=== PATIENT | male | born 1955 | race African-American/Black ===

== ENCOUNTER 2016-08-28 08:37 | Emergency (ER) | payer OTHER ==
[~2016-08-28] VITALS: Ht 177.8 cm; Wt 99.8 kg
[~2016-08-28 08:37] MED LIST: ACETAMINOPHEN-1 EAC1; ACETAMINOPHEN325 M1 PO; ASA5UEC PO; ASPIR 8181 MG PO; ASPIRIN325 PO; AZITHROMYCIN 2250 MG PO; BACTRIM DS TAB1 EACH PO; CARVEDILOL6.25 MG PO; COLCHICINE0.6 MG PO; DARVOCET-N 1001 EACH PO; DOXYCYCLINE 10100 MG PO; GLIPIZIDE 10 MG10 MG PO; GLIPIZIDE ER10 MG PO; GLUCOPHAGE XR500 MG PO; GLUCOPHAGE1000 MG PO; GLUCOPHAGE500 MG PO; GLUCOTROL10 MG PO; HYDROCODONE-AP1 EAC6 PO; IBUPROFEN 600600 M1 PO; INDOMETHACIN 2525 MG PO; KEFLEX500 MG PO; LASIX 20 MG TAB20 MG PO; LASIX 40 MG TAB40 M1 GT; LASIX 40 MG TAB40 MG PO; LEVEMIR SUBQ; LIPITOR40 MG PO; LISINOPRIL10 MG PO; LISINOPRIL20 MG PO; LISINOPRIL40 MG PO; LORTAB 7.5/5001 TA1 PO; METFORMIN HCL500 MG PO; NAPROSYN500 MG PO; NICOTINE1 EAC2; NORCO 5-325 TA1 EACH PO; PERCOCET 5-3251 EACH PO; PERCOCET PO; PHENERGAN-CODE120 ML PO; PLAVIX 75 MG TA75 M1 PO; PROPOXY-N/APAP1 TAB PO; PROVENTIL HFA6.7 G1 INH; SIMVASTATIN20 MG PO; TESSALON PERLE100 MG PO; TOPROL XL25 MG PO; TUSSIONEX PENN473 ML PO; UNICOMPLEX M TA1 TA1 PO; VENTOLIN HFA 1818 GM INH; ZOCOR40 MG PO; ZPAK PO
[2016-08-28] MEDS ORDERED: PROAIR HFA8.5 GM INH (09:12)
[2016-08-28] MEDS ORDERED: TESSALON PERLE100 MG PO (09:12)
[2016-08-28] MEDS ORDERED: PREDNISONE 20 M20 MG PO (09:12)
== END 2016-08-28 09:37 | disposition home or self-care (01) ==
LOC: ER 08:37
DX: J06.9 Acute upper respiratory infection, unspecified (principal); I11.0 Hypertensive heart disease with heart failure; I50.9 Heart failure, unspecified; E11.9 Type 2 diabetes mellitus without complications; Z95.5 Presence of coronary angioplasty implant and graft; Z86.79 Personal history of other diseases of the circulatory system; Z86.73 Personal history of transient ischemic attack (TIA), and cerebral infarction without residual deficits; Z87.442 Personal history of urinary calculi; F17.210 Nicotine dependence, cigarettes, uncomplicated; F10.99 Alcohol use, unspecified with unspecified alcohol-induced disorder

== ENCOUNTER 2017-06-04 12:31 | Emergency (ER) | payer OTHER ==
[~2017-06-04] VITALS: Ht 177.8 cm; Wt 102.1 kg
[~2017-06-04 12:31] MED LIST changes: +PREDNISONE 20 M20 MG PO; +PROAIR HFA8.5 GM INH
[2017-06-04 12:40] VITALS: BP 164/100
[2017-06-04] MEDS ORDERED: ZPAK PO ×2 (13:34→13:39)
[2017-06-04] MEDS ORDERED: PROMETHAZINE/C118 ML PO ×2 (13:34→13:39)
[2017-06-04] MEDS ORDERED: PREDNISONE 20 M20 MG PO (13:39)
[2018-01-09] MEDS ORDERED: VENTOLIN HFA 1818 GM INH (14:07)
[2018-01-09] MEDS ORDERED: ROBITUSSIN COU237 M2 PO (14:07)
[2018-01-09] MEDS ORDERED: TESSALON PERLE100 MG PO (14:07)
== END 2017-06-04 13:42 | disposition home or self-care (01) ==
LOC: ER 12:31
DX: R05 Cough (principal); I11.0 Hypertensive heart disease with heart failure; I50.9 Heart failure, unspecified; Z87.442 Personal history of urinary calculi; Z71.6 Tobacco abuse counseling; Z72.0 Tobacco use

== ENCOUNTER 2017-08-25 18:41 | Emergency (ER) | payer OTHER ==
[~2017-08-25] VITALS: Ht 177.8 cm; Wt 99.8 kg
[~2017-08-25 18:41] MED LIST changes: +PROMETHAZINE/C118 ML PO
[2017-08-25] MEDS ORDERED: PREDNISONE 20 M20 MG PO (20:11)
[2017-08-25] MEDS ORDERED: PROMETHAZINE/C118 ML PO (20:11)
== END 2017-08-25 20:20 | disposition home or self-care (01) ==
LOC: ER 18:41
DX: J40 Bronchitis, not specified as acute or chronic (principal); I11.0 Hypertensive heart disease with heart failure; I50.9 Heart failure, unspecified; E11.9 Type 2 diabetes mellitus without complications; I25.10 Atherosclerotic heart disease of native coronary artery without angina pectoris; F17.210 Nicotine dependence, cigarettes, uncomplicated

== ENCOUNTER 2018-03-18 11:03 | Emergency (ER) | payer OTHER ==
[~2018-03-18] VITALS: Ht 177.8 cm; Wt 99.8 kg
--- NOTE | ~2018-03-18 | EKG ---
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: [facility] : 1955 Requested By: Steve Barksdale Order Number: [id number] MD: Scott Nicholson Measurements Intervals [place] Rate: 76 P: 50 MN: 152 QRS: 20 QRSD: 112 T: 179 QT: 431 QTc: 485 Interpretive Statements Sinus rhythm Abnrm T, consider ischemia, anterolateral lds Baseline wander in lead(s) V2 Compared to ECG 10/31/2015 07:40:22 T wave abnormality is more pronounced Electronically Signed On 03-19-2018 7:32:[address] LIGHT REPAIRER HELPER by Scott Nicholson [email or web address] <ELECTRONICALLY SIGNED> By: Scott Nicholson MD, [facility] 03/19/18 0732 1206 1206 Scott Nicholson MD, [facility] /EPI
[~2018-03-18 11:03] MED LIST changes: +ROBITUSSIN COU237 M2 PO
[2018-03-18 12:03] LABS: HEMATOCRIT 46.2 % (42.0-52.0); HEMOGLOBIN 15.4 gm/dL (14.0-18.0); MCH 30.6 pg (26.0-34.0); MCHC 33.3 g/dL (28.0-37.0); MCV 91.8 fL (80.0-100.0); RBC 5.03 mil/uL (4.50-6.00); RDW 12.5 % (10.5-14.5); WBC 8.9 thou/uL (4.0-11.0)
[2018-03-18 12:04] LABS: URINE BILIRUBIN NEGATIVE (Negative); URINE BLOOD NEGATIVE (Negative); URINE CLARITY CLEAR; URINE COLOR YELLOW; URINE GLUCOSE-RANDOM* 3+ (Negative); URINE KETONES NEGATIVE (Negative); URINE LEUKOCYTES-REFLEX NEGATIVE (Negative); URINE NITRITE-REFLEX NEGATIVE (Negative); URINE PROTEIN (DIPSTICK) NEGATIVE (Negative); URINE SPECIFIC GRAVITY >= 1.030 (1.005-1.035); URINE UROBILINOGEN 0.2 E.U./dl (0.2-1.0)
[2018-03-18 12:07] LABS: ANION GAP 8 mmol/L (7-16); BUN 13 mg/dL (7-18); CALCIUM 9.8 mg/dL (8.5-10.1); CHLORIDE 101 mmol/L (98-107); CO2 30 mmol/L (21-32); CREATININE 1.3 mg/dL (0.7-1.3); GLUCOSE 275 mg/dL (74-106); POTASSIUM 3.9 mmol/L (3.5-5.1); SODIUM 139 mmol/L (136-145)
[2018-03-18 12:16] LABS: TROPONIN-I <0.06 ng/mL (<0.06)
[2018-03-18 15:47] VITALS: BP 140/86
== END 2018-03-18 15:57 | disposition left against medical advice (07) ==
LOC: ER 11:03
PROVIDERS: Emergency Medicine
DX: R53.1 Weakness (principal); E11.9 Type 2 diabetes mellitus without complications; I11.0 Hypertensive heart disease with heart failure; I50.9 Heart failure, unspecified; I25.10 Atherosclerotic heart disease of native coronary artery without angina pectoris; F17.210 Nicotine dependence, cigarettes, uncomplicated; Z86.73 Personal history of transient ischemic attack (TIA), and cerebral infarction without residual deficits; Z95.5 Presence of coronary angioplasty implant and graft; Z87.442 Personal history of urinary calculi

== ENCOUNTER → 2018-04-23 | Outpatient (CLI) | payer OTHER | LOC: MRI 13:33 | DX: I63.9 Cerebral infarction, unspecified (principal); R29.898 Other symptoms and signs involving the musculoskeletal system; Z72.0 Tobacco use ==

== ENCOUNTER 2018-08-05 10:02 | Emergency (ER) | payer OTHER ==
[~2018-08-05] VITALS: Ht 175.3 cm; Wt 99.8 kg
[2018-08-05 10:56] LABS: ABSOLUTE NEUTROPHILS 5.1 thou/uL (1.4-8.2); BASOPHILS 0.7 % (0.0-2.0); EOSINOPHILS 1.1 % (0.0-3.0); HEMOGLOBIN 14.1 gm/dL (14.0-18.0); LYMPHOCYTES 26.8 % (24.0-44.0); MCHC 33.5 g/dL (28.0-37.0); MCV 92.7 fL (80.0-100.0); MONOCYTES 5.1 % (1.0-8.0); PLATELET COUNT 281 thou/uL (150-400); POLYS 66.3 % (36.0-66.0); RBC 4.53 mil/uL (4.50-6.00); RDW 12.2 % (10.5-14.5); WBC 7.7 thou/uL (4.0-11.0)
[2018-08-05 10:59] LABS: CALCIUM 9.2 mg/dL (8.5-10.1); CREATININE 1.2 mg/dL (0.7-1.3); POTASSIUM 3.9 mmol/L (3.5-5.1)
[2018-08-05 11:08] LABS: ALBUMIN 3.3 g/dL (3.4-5.0); TOTAL BILIRUBIN 0.7 mg/dL (<0.1-1.0); TROPONIN-I 0.24 ng/mL (<0.06)
[2018-08-05] MEDS ORDERED: TOPROL XL25 MG PO (12:06)
[2018-08-05] MEDS ORDERED: METFORMIN HCL500 MG PO (12:07)
[2018-08-05] MEDS ORDERED: GUAIFEN-CODEINE10 ML PO (13:30)
[2018-08-05 13:38] VITALS: BP 151/92
--- NOTE | 2018-08-06 08:46 | EKG ---
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: [facility] : 1955 Requested By: Serina Stokes Order Number: [id number] MD: Errol Mann Measurements Intervals [place] Rate: 93 P: 44 MN: 150 QRS: 24 QRSD: 113 T: 187 QT: 370 QTc: 461 Interpretive Statements Sinus rhythm Probable left atrial enlargement Borderline intraventricular conduction delay Abnormal T, similar to prior Electronically Signed On 08-06-2018 8:46:36 CDT by Errol Mann [email or web address] ��������������������������������������������� <ELECTRONICALLY SIGNED> ���������������������������������������� By: Errol Mann MD ��������������������������������������������� 08/06/18 0846 1012 Errol Mann MD /DONNA
== END 2018-08-05 13:52 | disposition home or self-care (01) ==
LOC: ER 10:02
PROVIDERS: Emergency Medicine
DX: S29.012A Strain of muscle and tendon of back wall of thorax, initial encounter (principal); J06.9 Acute upper respiratory infection, unspecified; R79.89 Other specified abnormal findings of blood chemistry; E11.9 Type 2 diabetes mellitus without complications; I11.0 Hypertensive heart disease with heart failure; I50.9 Heart failure, unspecified; I25.10 Atherosclerotic heart disease of native coronary artery without angina pectoris; F17.210 Nicotine dependence, cigarettes, uncomplicated; Z86.73 Personal history of transient ischemic attack (TIA), and cerebral infarction without residual deficits; Z79.899 Other long term (current) drug therapy; Z87.442 Personal history of urinary calculi; V89.2XXA Person injured in unspecified motor-vehicle accident, traffic, initial encounter; Y93.I9 Activity, other involving external motion; Y92.410 Unspecified street and highway as the place of occurrence of the external cause; Y99.8 Other external cause status

== ENCOUNTER 2018-08-06 15:15 | Inpatient (IN) | payer OTHER ==
[~2018-08-06] VITALS: Ht 175.3 cm; Wt 101.5 kg
[2018-08-06] VITALS (18 sets, daily range): BP systolic 145–170; BP diastolic 87–108
[~2018-08-06 15:15] MED LIST changes: +GUAIFEN-CODEINE10 ML PO
[2018-08-06 16:03] LABS: ABSOLUTE NEUTROPHILS 7.2 thou/uL (1.4-8.2); BASOPHILS 0.8 % (0.0-2.0); HEMATOCRIT 41.4 % (42.0-52.0); HEMOGLOBIN 13.8 gm/dL (14.0-18.0); LYMPHOCYTES 18.6 % (24.0-44.0); MCH 30.8 pg (26.0-34.0); MCHC 33.2 g/dL (28.0-37.0); MCV 92.7 fL (80.0-100.0); MONOCYTES 4.9 % (1.0-8.0); PLATELET COUNT 284 thou/uL (150-400); POLYS 74.7 % (36.0-66.0); RBC 4.47 mil/uL (4.50-6.00); RDW 12.2 % (10.5-14.5); WBC 9.6 thou/uL (4.0-11.0)
[2018-08-06 16:09] LABS: CREATININE 1.2 mg/dL (0.7-1.3); POTASSIUM 3.4 mmol/L (3.5-5.1)
[2018-08-06 16:18] LABS: ALBUMIN 3.3 g/dL (3.4-5.0); TOTAL BILIRUBIN 0.6 mg/dL (<0.1-1.0); TOTAL PROTEIN 6.7 g/dL (6.4-8.2); TROPONIN-I 0.23 ng/mL (<0.06)
[2018-08-06 16:32] LABS: PROTIME 10.5 Seconds (9.3-11.4)
--- NOTE | 2018-08-06 18:10 | NUR ---
PT ARRIVED TO ICU AT 1805 FROM CAREER DEVELOPMENT ENGINEER. PT A&OX4. PT 97% ON ROOM AIR. HR 89, R-21, BP 144/88. PT ARRIVED LAYING FLAT, R GROIN SHEATH IN PLACE. PT STATES NO PAIN AT THIS TIME. ADMIT TELE STRIP PRINTED AND PLACED ON CHART.
--- NOTE | 2018-08-06 21:17 | NUR ---
ASSUMED CARE OF PT AT 1900. PT ALERT AND ORIENTED X4. SR ON THE MONITOR. BP ELEVATED. DIASTOLIC 90-100s. RIGHT GROIN SHEATH REMOVED AT 2029 PER ORDER. PRESSURE HELD TIL 2049. SCANT AMOUNT OF BLOOD OBSERVED. PT TOLERATED PROCEDURE WELL. PT HAS BEEN GRUNTING. O2 SAT WNL. HE DENIES ANY SOA. PT PLACED ON 2L NC FOR COMFORT. PT ABLE TO VOID PER URINAL. EDUCATION PROVIDED ON SYMPTOMS TO REPORT POST SHEATH REMOVAL. WILL CONTINUE TO MONITOR.
[2018-08-07] VITALS (17 sets, daily range): BP systolic 129–167; BP diastolic 78–99
[2018-08-07 04:28] LABS: CHOLESTEROL 160 mg/dL (<200); HDL CHOLESTEROL 33 mg/dL (>40); LDL CHOLESTEROL 113 mg/dL (<100); TC:HDL 4.8 Ratio (Not establshd); TRIGLYCERIDE 74 mg/dL (<150); VLDL 15 mg/dL (<40)
[2018-08-07 04:40] LABS: SERUM ASSESSMENT Clear
[2018-08-07 04:42] LABS: ANION GAP 10 mmol/L (7-16); BUN 14 mg/dL (7-18); CALCIUM 8.6 mg/dL (8.5-10.1); CHLORIDE 107 mmol/L (98-107); CO2 24 mmol/L (21-32); CREATININE 0.9 mg/dL (0.7-1.3); GLUCOSE 182 mg/dL (74-106); MAGNESIUM 1.8 mg/dL (1.8-2.4); POTASSIUM 3.7 mmol/L (3.5-5.1); SODIUM 141 mmol/L (136-145)
[2018-08-07 04:44] LABS: ABSOLUTE NEUTROPHILS 6.8 thou/uL (1.4-8.2); BASOPHILS 0.6 % (0.0-2.0); EOSINOPHILS 1.1 % (0.0-3.0); HEMATOCRIT 40.9 % (42.0-52.0); HEMOGLOBIN 13.6 gm/dL (14.0-18.0); LYMPHOCYTES 13.3 % (24.0-44.0); MCH 30.6 pg (26.0-34.0); MCHC 33.2 g/dL (28.0-37.0); MCV 92.3 fL (80.0-100.0); MONOCYTES 6.7 % (1.0-8.0); PLATELET COUNT 277 thou/uL (150-400); POLYS 78.3 % (36.0-66.0); RBC 4.43 mil/uL (4.50-6.00); RDW 12.5 % (10.5-14.5); WBC 8.6 thou/uL (4.0-11.0)
--- NOTE | 2018-08-07 08:24 | EKG ---
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[place] : 1955 Requested By: Mendy Isaac Order Number: [id number] MD: Errol Mann Measurements Intervals [place] Rate: 104 P: 40 [place]: 148 QRS: 23 QRSD: 111 T: 212 QT: 359 QTc: 473 Interpretive Statements Sinus tachycardia Ventricular premature complex Probable left atrial enlargement Repol abnrm laterally similar to prior Electronically Signed On 08-07-2018 8:24:03 CDT by Errol Mann [email or web address] ��������������������������������������������� <ELECTRONICALLY SIGNED> ���������������������������������������� By: Errol Mann MD ��������������������������������������������� 08/07/18 0824 1530 1530 Errol Mann MD /DON[facility]
--- NOTE | 2018-08-07 08:25 | EKG ---
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: [place] : 1955 Requested By: Mendy Isaac Order Number: [id number] MD: Errol Mann Measurements Intervals [place] Rate: 100 P: 37 [place]: 145 QRS: 21 QRSD: 113 T: 213 QT: 358 QTc: 462 Interpretive Statements Sinus tachycardia Probable left atrial enlargement unchanged from prior ekg Electronically Signed On 08-07-2018 8:25:00 CDT by Errol Mann [email or web address] ��������������������������������������������� <ELECTRONICALLY SIGNED> ���������������������������������������� By: Errol Mann MD ��������������������������������������������� 08/07/18 0825 1539 1539 MD JAIME Aguero
--- NOTE | 2018-08-07 08:26 | EKG ---
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 Electronically Signed On 08-07-2018 8:26:04 CDT by Errol Mann [email or web address] ��������������������������������������������� <ELECTRONICALLY SIGNED> ���������������������������������������� By: Errol Mann MD ��������������������������������������������� 08/07/18 0826 1603 1603 Errol Mann MD /DONNA
--- NOTE | 2018-08-07 08:30 | EKG ---
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: Elyse AMIN : 1955 Requested By: Jose Naik Order Number: [id number] MD: Errol Mann Measurements Intervals [place] Rate: 87 P: 46 [place]: 147 QRS: 30 QRSD: 109 T: 221 QT: 369 QTc: 444 Interpretive Statements Sinus rhythm Probable left atrial enlargement ST elevation, unchanged from prior Electronically Signed On 08-07-2018 8:30:32 CDT by Errol Mann [email or web address] ��������������������������������������������� <ELECTRONICALLY SIGNED> ���������������������������������������� By: Errol Mann MD ��������������������������������������������� 08/07/18 0830 1857 57 MD JAIME Aguero
--- NOTE | 2018-08-07 08:39 | EKG ---
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 : 1955 Requested By: Jose Naik Order Number: [id number] MD: Errol Mann Measurements Intervals [place] Rate: 85 P: 39 LA: 149 QRS: 9 QRSD: 107 T: 191 QT: 376 QTc: 447 Interpretive Statements Sinus rhythm Probable left atrial enlargement ST changes unchanged, likely early repol Electronically Signed On 08-07-2018 8:39:16 CDT by Errol Mann [email or web address] ��������������������������������������������� <ELECTRONICALLY SIGNED> ���������������������������������������� By: Errol Mann MD ��������������������������������������������� 08/07/18 0839 0747 0747 Errol Mann MD /DONNA
--- NOTE | 2018-08-07 09:26 | CATHLAB ---
[address] [address] [place] [address] INVASIVE PROCEDURE REPORT Name: ARACELI LARSEN Room #: 236-P ADM IN M.R.#: [id number] ������������� Admission: 08/06/18 ������������� Attend Phys: Jose Naik MD Discharge: ��� ������������� ��� Date of : 57 Date of Service: 08/07/18 0926 �� Report #: [id number] �������� ��������������������������������������������[id number] THIS REPORT FOR: //name// APPROVED REPORT Study performed: 08/06/2018 16:26:18 Patient Details Patient Status: ED Room #: The patient is a 62 year-old male Event Personnel Jose Naik Fishing Guide, Beba Mccracken RN RN, Hollie Ray(R)() Jose Nation David Monitor Procedures Performed Left Heart Cath w/or w/o Coronaries [id number] [facility] K[facility] Place w/wo Plasty Single RCA [id number] Indication Non-STEMI , Dyspnea, Chest pain Risk Factors Cerebrovascular DiseasePeripheral Vascular Disease, Hypercholesterolemia, Coronary Artery DiseaseHypertension Previous Procedures/Diagnoses Previous PCI, Previous HI Procedure Narrative The Right Groin^ was infiltrated with 1% Lidocaine subcutaneous anesthesia. A PINNACLE 6FR Sheath #[id number] sheath was inserted into the RFA^. Coronary angiography was performed using coronary diagnostic catheters. The right coronary system was accessed and visualized with a JR4 catheter. The left coronary system was accessed and visualized with a JL4 catheter. The left ventricle was accessed and visualized with a PIGTAIL catheter. Left ventricular/Aortic Valve gradient assessed via catheter pullback. Left ventriculogram was performed in 30 degree projection. SHEATH LEFT IN PLACE Intraoperative Conscious Sedation Sedation start time: 16.53 Case end Time: 17.50 Fentanyl 25 mcg Versed 1 mg [facility] [address] [place] [address] INVASIVE PROCEDURE REPORT Name: SUZIEJENNIEKimberly BRAN Room #: 236-P [facility] IN [facility].#: [id number] ������������� Admission: 08/06/18 ������������� Attend Phys: Jose Naik MD Discharge: ��� ������������� ��� Date of : 57 Date of Service: 08/07/18 0926 �� Report #: [id number] �������� ��������������������������������������������[id number] Fluoro Time: 8.38 minutes Dose: DAP 79348 cGycm2 1585 mGy Contrast Type and Amount: Visipaque 175 ml Coronary Angiography The patient's coronary anatomy is right dominant. Diagnostic Cath Left Main There is a large caliber vessel, with no flow-limiting lesions. LAD This is a moderate size caliber vessel, traversing the anterior wall and terminating at the apex. There is a mild to moderate stenosis in the proximal segment, 40%. Diagonal 1 This is a small-caliber vessel, with no flow-limiting lesions. Diagonal 2 This is a small-caliber vessel, with no flow-limiting lesions. Circumflex This is a moderate size caliber vessel, with mild disease in the proximal segment, 30%. OM1 This is a moderate size caliber vessel, with mild disease proximally. OM2 This is a small-caliber vessel with a subtotal ostial stenosis. The distal segment is filled via collateral circulation from diagonal arteries. This is unchanged from prior procedures and medical therapy is recommended. Right Coronary This is a dominant vessel with a severe occlusion in the proximal segment, greater than 95%. R PDA This is a moderate size caliber vessel, patent with no flow-limiting lesions. RPLV There is a stent with severe restenosis. This is unchanged from prior procedures and medical therapy is recommended. Left Ventriculography Left Ventriculography was not performed. An LVEDP was measured and there is no gradient across the outflow tract. Hemodynamics The aortic pressure is 182/109 mmHg with a mean of 107 mmHg. The left ventricular pressure is 150/21 mmHg with a mean of mmHg. The left ventricular end diastolic pressure is 37 mmHg. There was no gradient across the aortic valve upon pullback. Pullback from the left ventricle to the aorta revealed no gradient across the aortic valve. PCI Technique Lesion [facility] [address] [place] [address] INVASIVE PROCEDURE REPORT Name: ARACELI LARSEN Room #: 236-P [facility] IN M.R.#: [id number] ������������� Admission: 08/06/18 ������������� Attend Phys: Jose Naik MD Discharge: ��� ������������� ��� Date of : 57 Date of Service: 08/07/18 0926 �� Report #: [id number] �������� ��������������������������������������������[id number] Percutaneous coronary intervention was performed on the proximal right coronary artery. The lesion stenosis prior to intervention was 99% with GABY 3 flow. A VISTA 6FR JR 4 #[id number] Guide Catheter was used to engage the ostium. A Luge Wire .014 x 182CM #[id number] Interventional Guidewire was used to cross the lesion. BALLOON DILATION A Balloon catheter Euphora RX 3.0 x 15 #[id number] was inserted and inflated up to 16.00atm for 14seconds. STENT DEPLOYMENT A drug-eluting stent RESOLUTE DEDRICK RX 4.0 X 18 #[id number] was inserted and inflated up to 18.00atm for 21seconds. POST STENT DEPLOYMENT BALLOON DILATION A Balloon catheter Euphora NC RX 4.5 x 12 #[id number] was inserted and inflated up to 14.00atm for 20seconds. Final angiography reveals 5 % stenosis with GABY 3 flow. Conclusion 1. Successful insertion of a drug-eluting stent into the proximal RCA stenosis. 2. The LAD has mild to moderate disease. 3. Subtotal occlusion of a second OM vessel(small vessel), unchanged from prior procedures. Medical therapy is recommended. 4. Severe restenosis of a small right posterior lateral artery, unchanged from prior procedures. Medical therapy is recommended. 5. Recommend dual antiplatelet therapy and aggressive risk factor management. ��������������������������������������������� <ELECTRONICALLY SIGNED> ���������������������������������������� By: Jose Naik MD ��������������������������������������������� 08/07/18925 5 5 Jose Naik MD /INF
--- NOTE | 2018-08-07 17:00 | NUR ---
Bladder scan performed. Patient post void had 116ml left in bladder. Kelley catheter attempted. It was mostly inserted with ease, however patient was screaming in pain and demanded it be removed. Nurse attempted to wait a minute to see if pain would subside, however it did not and he did not want the catheter in place. Assessments and vital signs as documented. He was very calm and cooperative earlier today. However this afternoon he became more impulsive, which he had not been. He was given a dose of lasix, and due to his intermittent urgency and frequency of urination, he would just pee without the urinal. No all urine today was measureable. Nurse prior to kelley insertion attempt, trialed the external male catheter, however when he got out of bed, it fell off. Patient expressed later on he might be willing to trial it again. Patient transferred patient to ccu in bed with spouse at bedside. He tolerated transfer well. He was transported with cardiac catheterization technician. Right groin site remains intact with dry dressing. He has denied pain. He expressed he is breathin better after the lasix. Nurse talked with physician about a nicotine patch, and did not want it a this time. Nurse also talked with physician about chest xray results, no new orders.
--- NOTE | 2018-08-07 17:54 | NUR ---
PT TRANSFERED TO UNIT FROM THE ICU - ORIENTED TO BED SAPCE - ACCUCHECK COVERED PER SSI. MASTER DIET AND FLUIDS. NO CO'S OF PAIN OR NAUSEA. AT THE BEDSIDE - APPEARS TO BE COMFORTABLE AT THE PRESENT TIME.
[2018-08-07 23:07] LABS: GLYCOHEMOGLOBIN (HGB A1C) 9.2 % (4.8-5.6)
[2018-08-08 04:20] VITALS: BP 151/100
[2018-08-08 05:29] LABS: CALCIUM 8.8 mg/dL (8.5-10.1); CREATININE 1.1 mg/dL (0.7-1.3); POTASSIUM 3.2 mmol/L (3.5-5.1)
--- NOTE | 2018-08-08 06:03 | NUR ---
ASSUMED PT CARE AT 1900 WITH BEDSIDE SHIFT REPORT TAKEN, PT IS ALERT AND ORIENTED WITH NO SIGN OF DISTRESS NOTED. PT IS LAYING IN BED AND DENIES ANY NEEDS AT THIS TIME. SCHEDULED MEDS ADMINISTERED TO PT AND PT TOLERATED PO INTAKE, VITAL SIGNS STABLE, GROIN SITE IS INTACT. DENIES ANY FURTHER NEEDS AT THIS TIME. CONTINUE NURSING POC.
[2018-08-08 08:00] VITALS: BP 142/88
[2018-08-08] MEDS ORDERED: LIPITOR40 MG PO (10:07)
[2018-08-08] MEDS ORDERED: ASPIR 8181 MG PO (10:07)
[2018-08-08] MEDS ORDERED: CLOPIDOGREL75 MG PO (10:07)
[2018-08-08] MEDS ORDERED: DEMADEX20 MG PO (10:07)
[2018-08-08 10:32] VITALS: BP 142/88
--- NOTE | 2018-08-08 11:56 | NUR ---
ASSESSMENT CHARTED - MEDS PER JUL - NO CO'S OF PAIN OR NAUSEA. MASTER DIET AND FLUIDS. UP AD GEOVANNA IN ROOM - STEADY ON FEET. PT HOME THIS AM - INSTRCTION RE HOME FOLLOW / MEDS AND CARE GIVEN TO - STATED UNDERSTANIDING OF INSTRUCTION GIVEN. LEFT UNIT VIA WHEELCHAIR - HOME VIA PVT VEHICLE ACCOMPANIED BY . NO CO'S AT TIME OF D/C.
== END 2018-08-08 11:58 | disposition home or self-care (01) | DRG 246 ==
LOC: ER 15:15 → EROBS 16:18 → ICU 16:18 → 2N 08-07 17:24 → ENTRNSPT 08-08 11:48 → EDTRNSPTSTS 08-08 11:51 → 2N 08-08 11:58
PROVIDERS: Nurse Practitioner; Nurse Practitioner Acute Care; Nurse Practitioner Gerontology; Physician Assistant; ADMIT Internal Medicine
PROC: B211YZZ Fluoroscopy of Multiple Coronary Arteries using Other Contrast (ICD-10-PCS; principal; 2018-08-06)
PROC: 027034Z Dilation of Coronary Artery, One Artery with Drug-eluting Intraluminal Device, Percutaneous Approach (ICD-10-PCS; principal; 2018-08-06)
PROC: 4A023N7 Measurement of Cardiac Sampling and Pressure, Left Heart, Percutaneous Approach (ICD-10-PCS; principal; 2018-08-06)
PROC: B215YZZ Fluoroscopy of Left Heart using Other Contrast (ICD-10-PCS; principal; 2018-08-06)
DX: I21.3 ST elevation (STEMI) myocardial infarction of unspecified site (principal); I50.43 Acute on chronic combined systolic (congestive) and diastolic (congestive) heart failure; I11.0 Hypertensive heart disease with heart failure; I25.10 Atherosclerotic heart disease of native coronary artery without angina pectoris; N20.0 Calculus of kidney; E78.5 Hyperlipidemia, unspecified; Z82.3 Family history of stroke; F17.210 Nicotine dependence, cigarettes, uncomplicated; E11.65 Type 2 diabetes mellitus with hyperglycemia; E78.00 Pure hypercholesterolemia, unspecified; Y83.8 Other surgical procedures as the cause of abnormal reaction of the patient, or of later complication, without mention of misadventure at the time of the procedure; Y92.89 Other specified places as the place of occurrence of the external cause; Z95.5 Presence of coronary angioplasty implant and graft; Z86.73 Personal history of transient ischemic attack (TIA), and cerebral infarction without residual deficits; Z87.442 Personal history of urinary calculi; Z82.49 Family history of ischemic heart disease and other diseases of the circulatory system
CPT/HCPCS: 10078; 10081

== ENCOUNTER 2018-09-09 09:43 | Emergency (ER) | payer OTHER ==
[~2018-09-09] VITALS: Ht 175.3 cm; Wt 98.9 kg
[~2018-09-09 09:43] MED LIST changes: +CLOPIDOGREL75 MG PO; +DEMADEX20 MG PO
[2018-09-09 10:01] LABS: URINE BILIRUBIN NEGATIVE (Negative); URINE BLOOD TRACE (Negative); URINE CLARITY CLEAR; URINE COLOR YELLOW; URINE GLUCOSE-RANDOM* 1+ (Negative); URINE KETONES NEGATIVE (Negative); URINE LEUKOCYTES-REFLEX NEGATIVE (Negative); URINE NITRITE-REFLEX NEGATIVE (Negative); URINE PROTEIN (DIPSTICK) TRACE (Negative); URINE SPECIFIC GRAVITY 1.015 (1.005-1.035)
[2018-09-09 10:23] LABS: CASTS None Seen /LPF (None Seen); SQUAMOUS 0-3 Few /LPF (0-3); URINE RBC 3-10 Few /HPF (0-2); URINE WBC-REFLEX 0-5 Rare /HPF (0-5)
[2018-09-09 10:24] LABS: BACTERIA-REFLEX None Seen /HPF (None Seen); CRYSTALS None Seen /LPF (None Seen)
[2018-09-09] MEDS ORDERED: NORCO 5-325 TA1 EACH PO (12:06)
[2018-09-09] MEDS ORDERED: NORFLEX100 MG PO (12:06)
[2018-09-09 12:12] VITALS: BP 135/88
== END 2018-09-09 12:15 | disposition home or self-care (01) ==
LOC: ER 09:43
PROVIDERS: Emergency Medicine
DX: S29.012A Strain of muscle and tendon of back wall of thorax, initial encounter (principal); E11.9 Type 2 diabetes mellitus without complications; I25.10 Atherosclerotic heart disease of native coronary artery without angina pectoris; I50.9 Heart failure, unspecified; I11.0 Hypertensive heart disease with heart failure; E78.5 Hyperlipidemia, unspecified; F17.210 Nicotine dependence, cigarettes, uncomplicated; Z95.5 Presence of coronary angioplasty implant and graft; Z86.73 Personal history of transient ischemic attack (TIA), and cerebral infarction without residual deficits; Z87.442 Personal history of urinary calculi; V89.2XXA Person injured in unspecified motor-vehicle accident, traffic, initial encounter; Y93.89 Activity, other specified; Y92.89 Other specified places as the place of occurrence of the external cause; Y99.8 Other external cause status

== ENCOUNTER 2018-10-05 21:25 | Emergency (ER) | payer OTHER ==
[~2018-10-05] VITALS: Ht 175.3 cm; Wt 98.9 kg
[~2018-10-05 21:25] MED LIST changes: +NORFLEX100 MG PO
[2018-10-05 22:25] LABS: ABSOLUTE NEUTROPHILS 8.3 thou/uL (1.4-8.2); BASOPHILS 0.8 % (0.0-2.0); HEMATOCRIT 40.5 % (42.0-52.0); HEMOGLOBIN 13.6 gm/dL (14.0-18.0); LYMPHOCYTES 21.4 % (24.0-44.0); MCH 31.8 pg (26.0-34.0); MCHC 33.6 g/dL (28.0-37.0); MCV 94.6 fL (80.0-100.0); MONOCYTES 4.2 % (1.0-8.0); PLATELET COUNT 379 thou/uL (150-400); POLYS 72.6 % (36.0-66.0); RBC 4.28 mil/uL (4.50-6.00); RDW 13.2 % (10.5-14.5); WBC 11.5 thou/uL (4.0-11.0)
[2018-10-05 22:27] LABS: ANION GAP 10 mmol/L (7-16); BUN 14 mg/dL (7-18); CALCIUM 9.5 mg/dL (8.5-10.1); CHLORIDE 105 mmol/L (98-107); CO2 28 mmol/L (21-32); CREATININE 1.3 mg/dL (0.7-1.3); GLUCOSE 287 mg/dL (74-106); POTASSIUM 3.5 mmol/L (3.5-5.1); SODIUM 143 mmol/L (136-145)
[2018-10-05 22:37] LABS: ALBUMIN 3.7 g/dL (3.4-5.0); MAGNESIUM 1.7 mg/dL (1.8-2.4); SGOT 16 U/L (15-37); SGPT 20 U/L (30-65); TOTAL BILIRUBIN 0.8 mg/dL (<0.1-1.0); TOTAL PROTEIN 7.6 g/dL (6.4-8.2); TROPONIN-I <0.06 ng/mL (<0.06)
[2018-10-05 22:38] LABS: PROTIME 10.1 Seconds (9.3-11.4)
[2018-10-05 22:54] LABS: URINE BILIRUBIN NEGATIVE (Negative); URINE BLOOD NEGATIVE (Negative); URINE CLARITY CLEAR; URINE COLOR YELLOW; URINE GLUCOSE-RANDOM* 3+ (Negative); URINE KETONES NEGATIVE (Negative); URINE LEUKOCYTES-REFLEX NEGATIVE (Negative); URINE NITRITE-REFLEX NEGATIVE (Negative); URINE PROTEIN (DIPSTICK) NEGATIVE (Negative)
[2018-10-05 23:04] LABS: AMP/METHAMP Negative (Negative); BARBITURATES Negative (Negative); BENZODIAZEPINES Negative (Negative); COCAINE Negative (Negative); METHADONE Negative (Negative); OPIATES Negative (Negative); PCP Negative (Negative)
[2018-10-05 23:09] VITALS: BP 102/59
--- NOTE | 2018-10-06 08:48 | EKG ---
[place] [address] [address] [facility] [place] [address] ELECTROCARDIOGRAM REPORT Name: ARACELI LARSEN [facility]: [facility]P [facility] [id number] ������������������ Admission: 10/05/18 ������������������ Attend Phys: Discharge: 10/05/18 ������������������ Date of : 57 Report #: [id number] ����������������������������������������������������������������� [id number] THIS REPORT FOR: //name// [facility] ED Test Date: 2018-10-05 Test Time: 22:14:31 Pat Name: ARACELI LARSEN Department: Room: Gender: Chief Information Officer: J : 1955 Requested By: Nabor Jarvis Order Number: [id number] MD: Errol Mann Measurements Intervals [place] Rate: 98 P: 39 [place]: 140 QRS: 14 QRSD: 106 T: 181 QT: 367 QTc: 469 Interpretive Statements Sinus rhythm Probable left atrial enlargement Nonspecific T abnrm, anterolateral leads Compared to ECG 08/07/2018 07:47:19 ST (T wave) deviation no longer present Electronically Signed On 10-06-2018 8:48:01 CDT by Errol Mann [email or web address] ��������������������������������������������� <ELECTRONICALLY SIGNED> ���������������������������������������� By: Errol Mann MD ��������������������������������������������� 10/06/18 0848 2214 221 Errol Mann MD /[facility]
== END 2018-10-05 23:12 | disposition left against medical advice (07) ==
LOC: ER 21:25
PROVIDERS: Emergency Medicine
DX: I63.9 Cerebral infarction, unspecified (principal); E11.9 Type 2 diabetes mellitus without complications; I11.0 Hypertensive heart disease with heart failure; I50.9 Heart failure, unspecified; I25.10 Atherosclerotic heart disease of native coronary artery without angina pectoris; E78.5 Hyperlipidemia, unspecified; F17.210 Nicotine dependence, cigarettes, uncomplicated; Z87.442 Personal history of urinary calculi; Z95.5 Presence of coronary angioplasty implant and graft; Z79.899 Other long term (current) drug therapy

== ENCOUNTER 2018-10-07 10:52 | Inpatient (IN) | payer OTHER ==
[~2018-10-07] VITALS: Ht 175.3 cm; Wt 98.9 kg
--- NOTE | ~2018-10-07 | HC ---
[facility] [place] [address] CONSULTATION Name: ARACELI LARSEN Room #: 355-P [facility] IN M.R.#: [id number] Admission: 10/07/18 ������������������ Attend Phys: Kishore Crowell Discharge: ������������������ Date of : 57 Report #: [id number] THIS REPORT FOR: //name// CC: lAly Crowell DATE OF SERVICE: 10/08/2018 HISTORY OF PRESENT ILLNESS: This is a 62-year-old male admitted with increased weakness of both legs 4-5 days ago. He was seen in the Emergency Department, was noted to be diagnosed with a CVA and per report left AMA. He was readmitted now, as he was having more and more problems functioning at home. MRI is consistent with an acute subacute right pontine paramedial stroke. He has left-sided weakness and left facial droop and is being evaluated by speech therapy regarding his swallowing. He is currently n.p.o. He has had significant functional deficits with his left-sided weakness and we are seeing him in rehabilitation medicine consultation. PAST MEDICAL HISTORY: Includes hypertension, diabetes mellitus type 2, CHF, cardiac stent placement with non-ST elevation myocardial infarction in 08/22, coronary artery disease, hyperlipidemia, did have a prior CVA without significant residual. There is a history of peripheral neuropathy. ALLERGIES: No known drug allergies. MEDICATIONS: Please see the full medication listing. This includes vitamins, herbals, and supplements as per report. FAMILY HISTORY: Heart disease, cancer, and hypertension. HABITS: Tobacco abuse noted to be a current every day smoker. There is a history of some alcohol usage. SOCIAL HISTORY: Lives in a house with , she works as a nurse. There are a few steps in. He had been independent, ambulatory prior to the current stroke. There is a son that lives there as well and can assist and apparently does not work outside the home. REVIEW OF SYSTEMS: No current complaints of chest pain, shortness of breath or abdominal discomfort. Frustrated, wants to eat. He has definite left-sided weakness. PHYSICAL EXAMINATION: GENERAL: A 62-year-old -Chinese male in no obvious distress. VITAL SIGNS: Last recorded temperature 97.8, pulse 76, respirations 16, blood pressure 171/93. He is alert. He is a left-handed male. [address] [address] CONSULTATION Name: ARACELI LARSEN Room #: [address] [place] [address] IN M.R.#: [id number] Admission: 10/07/18 ������������������ Attend Phys: Kishore Crowell Discharge: ������������������ Date of : 56 Report #: [id number] NEUROLOGIC: He has definite facial droop on the left with slurred speech and dysarthria. He is able to otherwise verbalize reasonably well. EOMs appeared to be full. No obvious visual field neglect to confrontation. He has left upper and lower extremity hemiparesis with upper extremity strength grade 3+/5, left lower extremity is 3-3+/5. DTRs are trace. There was no clonus. Sensation was actually reasonably intact to simultaneous stimulation in bilateral upper and lower extremities. Therapy evaluations are underway. He has been max assist for basic toilet transfers. Bed mobility has been mod assist. ASSESSMENT: A 62-year-old male with the following problem list: 1. Acute subacute right pontine cerebrovascular accident. 2. Left-sided hemiparesis. 3. Left facial droop with dysarthria. 4. Rule out dysphagia. He is currently n.p.o. Speech therapy involved. 5. History of coronary artery disease. 6. History of peripheral vascular disease. 7. Diabetes mellitus type 2. 8. Tobacco abuse. PLAN: Therapy evaluations are underway. He is a left-handed white male. We will be glad to see how he does in his therapy evaluations and he will be considered for an acute in-hospital inpatient rehabilitation stay. His feeding status will need to be clarified first with his video swallow study. Thank you for asking us to assist in this patient's care. We will be glad to follow along with you. ��������������������������������������������� ���������������������������������������� By: ��������������������������������������������� [id number] Brent Pelayo MD /nt
[2018-10-07 10:58] VITALS: BP 169/94
[2018-10-07 11:21] LABS: BASOPHILS 0.9 % (0.0-2.0); EOSINOPHILS 1.1 % (0.0-3.0); HEMATOCRIT 36.9 % (42.0-52.0); HEMOGLOBIN 12.4 gm/dL (14.0-18.0); LYMPHOCYTES 20.5 % (24.0-44.0); MCH 31.7 pg (26.0-34.0); MCHC 33.7 g/dL (28.0-37.0); MCV 94.1 fL (80.0-100.0); MONOCYTES 4.9 % (1.0-8.0); PLATELET COUNT 332 thou/uL (150-400); POLYS 72.6 % (36.0-66.0); RBC 3.93 mil/uL (4.50-6.00); RDW 13.1 % (10.5-14.5); WBC 9.6 thou/uL (4.0-11.0)
[2018-10-07 11:33] LABS: PROTIME 10.5 Seconds (9.3-11.4)
[2018-10-07 11:34] LABS: ANION GAP 12 mmol/L (7-16); BUN 15 mg/dL (7-18); CALCIUM 9.1 mg/dL (8.5-10.1); CHLORIDE 105 mmol/L (98-107); CO2 22 mmol/L (21-32); CREATININE 1.3 mg/dL (0.7-1.3); GLUCOSE 311 mg/dL (74-106); POTASSIUM 3.5 mmol/L (3.5-5.1); SODIUM 139 mmol/L (136-145)
[2018-10-07 11:44] LABS: ALBUMIN 3.4 g/dL (3.4-5.0); MAGNESIUM 1.7 mg/dL (1.8-2.4); SGOT 13 U/L (15-37); SGPT 16 U/L (30-65); TOTAL BILIRUBIN 0.7 mg/dL (<0.1-1.0); TOTAL PROTEIN 6.9 g/dL (6.4-8.2); TROPONIN-I <0.06 ng/mL (<0.06)
[2018-10-07] MEDS ORDERED: LIPITOR80 MG PO (11:46)
[2018-10-07] MEDS ORDERED: GLUCOPHAGE XR500 MG PO (11:47)
[2018-10-07] MEDS ORDERED: FARXIGA5 MG PO (11:49)
[2018-10-07] MEDS ORDERED: METFORMIN HCL500 MG PO (13:46)
[2018-10-07] MEDS ORDERED: ASPIR 8181 MG PO (13:49)
[2018-10-07 14:35] VITALS: BP 158/83
[2018-10-07 16:02] LABS: CHOLESTEROL 87 mg/dL (<200); HDL CHOLESTEROL 33 mg/dL (>40); LDL CHOLESTEROL 41 mg/dL (<100); TC:HDL 2.6 Ratio (Not establshd); TRIGLYCERIDE 69 mg/dL (<150); VLDL 14 mg/dL (<40)
[2018-10-07 16:03] LABS: SERUM ASSESSMENT Clear
[2018-10-07 16:28] LABS: FOLIC ACID 10.4 ng/mL (8.6-58.9); TSH 0.402 uIU/mL (0.358-3.740)
--- NOTE | 2018-10-07 17:03 | EKG ---
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: NEHEMIAH : 1955 Requested By: Robbie Sharp Order Number: [id number] MD: Scott Nicholson Measurements Intervals [place] Rate: 74 P: 52 [place]: 147 QRS: -1 QRSD: 112 T: 224 QT: 389 QTc: 432 Interpretive Statements Sinus rhythm Inferior infarct, old T wave abnormality, consider ischemia Compared to ECG 10/05/2018 22:14:31 T wave abnormality is more pronounced Electronically Signed On 10-07-2018 17:02:49 CDT by Scott Nicholson [email or web address] ��������������������������������������������� <ELECTRONICALLY SIGNED> ���������������������������������������� By: Scott Nicholson MD, [facility] ��������������������������������������������� 10/07/18 1702 1108 1108 Scott Nicholson MD, [facility] /EPI
[2018-10-07 22:41] VITALS: BP 149/76
[2018-10-07 22:56] VITALS: BP 151/86
[2018-10-07 23:19] LABS: URINE BILIRUBIN NEGATIVE (Negative); URINE BLOOD NEGATIVE (Negative); URINE CLARITY CLEAR; URINE COLOR YELLOW; URINE GLUCOSE-RANDOM* 3+ (Negative); URINE KETONES NEGATIVE (Negative); URINE LEUKOCYTES-REFLEX NEGATIVE (Negative); URINE NITRITE-REFLEX NEGATIVE (Negative); URINE PROTEIN (DIPSTICK) TRACE (Negative); URINE SPECIFIC GRAVITY >= 1.030 (1.005-1.035)
[2018-10-07 23:33] VITALS: BP 157/98
[2018-10-08 02:39] VITALS: BP 157/98
[2018-10-08 05:04] VITALS: BP 162/85
--- NOTE | 2018-10-08 06:08 | NUR ---
PT ARRIVED VIA ER WITH STROKE. NIH ON Q4 BASIS AVERAGING 4-5. PT HAS BEEN NPO SINCE ARRIVAL, BUT PATIENT DEMANDING FOOD AND EXPLAINED HE FAILED SWALLOW STUDY. GAVE PT SWABS AND SOME ICE CHIPS. PT CAN ROLL. LEFT SIDE HAS SOME WEAKNESS BUT PT CAN MOVE THEM. ORDERED BED BILLET EXAMINER. FOLLOWING POC WITH IVF. ALL ADMISSION COMPLETED. Q2 TURNS. HOURLY ROUNDING.
[2018-10-08 07:40] VITALS: BP 141/93
--- NOTE | 2018-10-08 13:37 | NUR ---
ASSESSMENT: CM REVIEWED CHART AND MET WITH PATIENT AND HIS AT THE BEDSIDE. PT WAS ADMITTED WITH CVA. PT REPORTS HE LIVES IN A DUPLEX WITH HIS . PT HAS ABOUT 6 STEPS WITH HANDRAILS TO ENTER AND NO STEPS HE HAS TO USE ONCE INSIDE. PT NORMALLY AMBULATES INDEPENDENTLY. PT DOES HAVE A CANE AT HOME BUT DOES NOT USE IT. PT REPORTS HE HAS NOT HAD HH IN THE PAST NOR BEEN TO A POST ACUTE CARE STAY. CM DISCUSSED ROLE. 5N CONSULT HAS BEEN PLACED AND WAITING ON FEEDBACK. PT IS WANTING TO GO TO 5N IF POSSIBLE. CM WILL CONTINUE TO FOLLOW TO ASSIST NEEDED.
[2018-10-08 16:21] VITALS: BP 145/89
[2018-10-08 19:45] VITALS: BP 151/94
--- NOTE | 2018-10-08 21:27 | NUR ---
PATIENT ALERT AND ORIENTED WITH SPOUSE AND DAUGHTER AT BEDSIDE. PATIENT IS ABLE TO STAND PIVOT TO BEDSIDE COMMODE WITH MAX ASSIST. PATIENT BEING EVALUATED FOR REHAB UNIT.
[2018-10-09 03:54] VITALS: BP 141/71
--- NOTE | 2018-10-09 06:00 | NUR ---
PATIENT IS PROGRESSING IN HIS CARE PLAN. VITAL SIGNS STABLE WITH PATIENT HAVING NO COMPLAINTS OF PAIN OR NAUSEA. PATIENT HAS REMAINED FULLY ALERT AND ORIENTED AND ABLE TO CALL APPROPRIATELY FOR NEEDS. NIH PER PROTOCOL WITH PATIENT SCORING FOR LEFT SIDED FACIAL DROOP, LEFT SIDED WEAKNESS, AND LANGUAGE/SPEAKING DEFICITS. SWALLOW PRECAUTIONS FOR ASPIRATION RISK. PATIENT WAS TURNED FREQUENTLY WITH SKIN PROTECTION PROVIDED. FREQUENT INCONTINENCE CLEANED WITH BARRIER CREAM APPLICATION. CONTINUE PLAN OF CARE.
[2018-10-09 08:43] VITALS: BP 188/89
[2018-10-09] MEDS ORDERED: ACETAMINOPHEN325 M1 PO (10:02)
--- NOTE | 2018-10-09 14:16 | NUR ---
Assumed care of Pt at 0700. Pt AOX4, in no acute distress. still with left sided weakness, facial droop, and slurred speech. reports no discrepancy in sensation. MRI today showing no changes. sinus on telemetry. anticipating d/c to 5N/Rehab this afternoon.
[2018-10-09 20:08] LABS: SYPHILIS AB Negative (Negative)
--- NOTE | 2018-10-11 22:26 | HC ---
[facility] [place] [address] CONSULTATION Name: ARACELI LARSEN Room #: 355-P [facility] IN M.R.#: [id number] Admission: 10/07/18 ������������������ Attend Phys: Kishore Crowell Discharge: 10/09/18 ������������������ Date of : 56 Report #: [id number] THIS REPORT FOR: //name// CC: Ally Crowell DATE OF SERVICE: 10/07/2018 HISTORY OF PRESENT ILLNESS: This is a 62-year-old male patient who was seen by me for the possibility of stroke. The patient was discussed with the Emergency Room physician. This patient was seen by me in 2014 and I reviewed those records. This patient has extensive vascular history. He came to Emergency Room two days ago with left-sided weakness, but refused admission. Today, he became worse and came to the hospital. He is pretty prominently weak on the left side. He does not know anything, which makes it better. It came spontaneously without any trauma. REVIEW OF SYSTEMS: Indicates the patient had stent put-in in August and another one sometime ago. I am not sure how compliant he is because his diabetes appeared to be uncontrolled. He indicates he has a history of hypertension and he also has a history of diabetes, hyperlipidemia, heart failure, prior stent put in. His left foot was cold and that is being evaluated. He is obese and has not lost much weight. He does not complain of any new eye, ENT, cardiac, respiratory, GI, , constitutional, dermatological, hematological, psychiatric, throat or allergic symptom associated with present symptomatology. PAST MEDICAL HISTORY: Positive for stroke. It is also positive for multiple cardiac problems. FAMILY HISTORY: Negative for any epilepsies. SOCIAL HISTORY: This patient has a supportive family. Some of the records indicate he has prior history of drug use, but does not look like he is doing it now because his drug screen was negative two days ago. He drinks alcohol very rarely and he has a history of smoking. PHYSICAL EXAMINATION: Indicate he is alert, responsive. His speech looks slurred. His memory and fund of knowledge is baseline. Cranial nerve examination 2-12 indicates left facial weakness. He is weak in the left upper and left lower extremity. In the left lower extremity, he barely has any movement. His position sense appeared to be present. His reflexes are diminished. His tone looks symmetrical. There is no cerebellar sign. There is no carotid bruit. There is no meningeal sign. His pulses are difficult to feel. He has no edema, cyanosis, jaundice. His cardiac examination appears unremarkable. No respiratory difficulty, but some rhonchi is present on both sides. His blood pressure is 142/93, respirations 19, pulse is 76. [facility] [address] [place] [address] CONSULTATION Name: SUZIEARACELIKimberly BRAN Room #: 355-P [facility] IN M.R.#: [id number] Admission: 10/07/18 ������������������ Attend Phys: Kishore Crowell Discharge: 10/09/18 ������������������ Date of : 56 Report #: [id number] LABORATORY DATA: His white count is 9.6. His blood sugar is 311. I reviewed the MRI and discussed with the radiologist who read it. The patient had a new brainstem CVA. IMPRESSION: 1. Brainstem cerebrovascular accident. 2. Prior history of cerebrovascular accident. 3. Multiple vascular risk factors, which are poorly controlled. RECOMMENDATIONS: I discussed with the patient the importance of controlling his vascular risk factors and the consequences of not doing it. He has not done a good job on it. He has severe pathology. Unfortunately, he is on the maximum treatment with aspirin and Plavix and there is no good indication for anticoagulation. We will continue same on him. He will probably go to rehab and we will consult rehab in that regard. His sed rate, his TSH, his vitamin B12 has been checked sometime that is not a problem, but his failure to control his risk factor is. ��������������������������������������������� <ELECTRONICALLY SIGNED> ���������������������������������������� By: Paco Cruz MD ��������������������������������������������� 10/11/18 [id number] 1237 Paco Cruz MD /nt
== END 2018-10-09 15:10 | DRG 66 ==
LOC: ER 10:52 → 3W 15:19 → EROBS 15:19 → 3W 22:56
PROVIDERS: Emergency Medicine; Psychiatry & Neurology Neuromuscular Medicine; ADMIT Hospitalist
DX: I63.9 Cerebral infarction, unspecified (principal); I10 Essential (primary) hypertension; I50.9 Heart failure, unspecified; I25.10 Atherosclerotic heart disease of native coronary artery without angina pectoris; E78.5 Hyperlipidemia, unspecified; F17.210 Nicotine dependence, cigarettes, uncomplicated; E66.9 Obesity, unspecified; R29.810 Facial weakness; R47.1 Dysarthria and anarthria; E11.51 Type 2 diabetes mellitus with diabetic peripheral angiopathy without gangrene; I25.2 Old myocardial infarction; Z95.5 Presence of coronary angioplasty implant and graft; Z87.442 Personal history of urinary calculi; Z79.899 Other long term (current) drug therapy; Z68.32 Body mass index [BMI] 32.0-32.9, adult
CPT/HCPCS: 10879

== ENCOUNTER 2018-10-09 10:36 | Inpatient (IN) | payer OTHER ==
[~2018-10-09] VITALS: Ht 177.8 cm; Wt 98.0 kg
[~2018-10-09 10:36] MED LIST changes: +FARXIGA5 MG PO; +LIPITOR80 MG PO
--- NOTE | 2018-10-09 19:45 | NUR ---
assumed care at aprox 1520. patient a/o x4. dysarthria and dysphagia noted. left hemiparesis noted. mild edema to ble. no wounds present. lung sounds course. discussed ntl liquids and potential need to downgrade diet. hospitalist boardmarker called, albuterol treatments ordered prn. patient had sign consents, consents reviewed with patient and his . both oriented to unit. admission assessment completed. consults called. fall precautions in place. patient resting in bed at change of shift.
[2018-10-09 19:57] VITALS: BP 153/84
--- NOTE | 2018-10-10 02:26 | NUR ---
PRN RT AEROSOL TREATMENT GIVEN FOR COARSE COUGHING LAST EVENING. PATIENT NOT A FAN OF THICKENED WATER, EXPLAINED TO HIM THAT HE CANNOT HAVE THIN WATER UNTIL HIS BODY LEARNS TO DRINK IT AGAIN AND THAT WILL BE ONE OF HIS GOALS WITH REHAB AND SPEECH THERAPY. HARD TIME FINDING POSITION OF COMFORT UNTIL ABOUT 2300 WHEN HE LAID ON HIS LEFT SIDE WITH THE FAN LOW ON IN THE ROOM. PLEASANT
[2018-10-10 05:22] LABS: HEMOGLOBIN 13.1 gm/dL (14.0-18.0); MCH 31.6 pg (26.0-34.0); MCHC 33.7 g/dL (28.0-37.0); MCV 93.7 fL (80.0-100.0); RBC 4.16 mil/uL (4.50-6.00); RDW 13.2 % (10.5-14.5)
[2018-10-10 05:33] LABS: CALCIUM 9.4 mg/dL (8.5-10.1); CREATININE 1.2 mg/dL (0.7-1.3); POTASSIUM 3.4 mmol/L (3.5-5.1)
--- NOTE | 2018-10-10 05:43 | NUR ---
STATES UNABLE TO VOID, BLADDER SCAN INDICATES 185 CC, EXPLAINED TO PATIENT HOW MUCH VOLUME THAT IS. STATES HE IS THIRSTY AND WOULD LIKE ICE, AGAIN OFFERED AND DECLINED NECTAR THICK LIQUIDS. I ALSO EXPLAINED THAT HE WILL HAVE DAILY INSTRUCTION ON HOW TO MANAGE PO LIQUIDS, BUT I DON'T WANT TO CAUSE HIM TO ASPIRATE IN THE MEANTIME.
[2018-10-10 07:30] VITALS: BP 140/71
--- NOTE | 2018-10-10 15:28 | NUR ---
chart review, report from bedside nurse. pt up in bed, noted diff with verbal communication. pt on nectar thick liquid, will cont work with speech therapy. pt able answer yes no question. cm visited with pt bharti via phone call rt dcp, team meeting and transition of care. " live in duplex, steps to enter with handrail. no stairs inside. he was completely independent and still driving vehicle. thank you for calling"/. will cont following as needed for dc needs.
[2018-10-10 20:11] VITALS: BP 152/79
--- NOTE | 2018-10-10 20:23 | NUR ---
ASSUMED CARE AT APPROX 0715. PATIENT A/O X4. DYSARTHRIA NOTED. PATIENT SEEING ST FOR DYSPHAGIA. NTL OFFERED, PATIENT REFUSING, CONTINUES TO REQUEST WATER. PATIENT EDUCATED ON DEHYDRATION, OFFERED OTHER FLAVORS OF THICKENED LIQUIDS, EDUCATED ABOUT VITAL STIM. FALL PRECAUTIONS IN PLACE. ASSIST WITH USE OF URINAL. PHYSICIAN CALLED REGARDING COURSE LUNG SOUNDS. ORDERS FOR ENCOURAGING IS, DEEP BREATHING, AND ENCOURAGING PATIENT TO COUGH RECEIVED. ORDERS FOR DVT PROPHYLAXIS RECEIVED. PATIENT DENIES PAIN. PARTICIPATED IN THERAPY. RESTING IN BED AT CHANGE OF SHIFT.
--- NOTE | 2018-10-10 23:46 | NUR ---
ASSUMED CARE OF THE PT AT 191. ALERT ET ORIENTED X 4. THE PT WAS IN BED WHEN THIS DISABILITY SPECIALIST CAME ON DUTY. WE HAVE TURNED HIM EVERY 2 HOURS PER PT REQUEST AND ASSISTED HIM UP IN THE BED. MAKES NEEDS KNOWN. HEART RATE REGULAR, LUNGS CLEAR BILATERALLY. CALL LIGHT WITHIN REACH.
[2018-10-11 09:30] VITALS: BP 122/70
--- NOTE | 2018-10-11 15:46 | NUR ---
ASSUMED CARE AT APPROX 0715. PATIENT A/O X4. SPEECH SLURRED. L HEMPARESIS NOTED. VSS. ACCUCHECK ACHS, MONITORED. PATIENT REFUSING NECTAR THICKENED LIQUIDS. PATIENT EDUCATED ON STROKE AND NEED FOR SWALLOW PRECAUTIONS. VARYING FLAVORS OF NTL OFFERED. PATIENT DRANK SOME THIN LIQUIDS WITH SPEECH SUPERVISION AT DINING TABLE, OVERT SIGNS OF ASPIRATION NOTED, PATIENT EDUCATED AGAIN, PATIENT'S PRESENT & ALSO INCLUDED IN TEACHING. TO BRING IN OUTSIDE DRINKS FOR NURSES TO APPROVE & THICKEN TO ENCOURAGE ORAL INTAKE PHYSICIAN NOTIFIED OF DECREASED INTAKE & OUTPUT. PATIENT REQUESTED INFO ON SMOKING CESSATION, INFO PROVIDED BY RT, NICOTENE 7MG PATCH RESUMED. FALL PRECAUTIONS IN PLACE. PATIENT RESTING IN BED. TURNS SELF IN BED, INDEPENDENTLYL TO L SIDE, WITH ASSIST TO RIGHT. MAX ASSIST TO TRANSFER TO CHAIR. WILL CONTINUE TO MONITOR.
[2018-10-11 18:50] VITALS: BP 134/68
--- NOTE | 2018-10-12 04:24 | NUR ---
AGAIN ENCOURAGING PATIENT TO DRINK NECTAR THICK LIQUIDS, HE DOES NOT APPROVE OF THEM AND WANTS ICE WATER. AGAIN EXPLAINED TO PATIENT THAT IT WOULD LEAD TO ASPIRATION PNEUMONIA, TOOK ONLY SIP OF APPLE JUICE. MOUTH SWABBED WITH NYSTATIN, USED URINAL AND PREFERS TO WEAR BRIEF, NEW BRIEF APPLIED AFTER NOTING CURRENT BRIEF WAS MOIST.
[2018-10-12 07:40] VITALS: BP 139/91
--- NOTE | 2018-10-12 09:23 | NUR ---
ASSUMED CARE OF PT AT 0715. PT IS A&OX4 WITH APHASIA. DENIES PAIN. IS ON ROOM AIR. IS UP WITH TRANSFER ASSIST MAX OF 2, STAND PIVOT WITH GAIT BELT. FALL PRECAUTIONS & HOURLY ROUNDING MAINTAINED. PT REFUSED TO TAKE MEDS THIS AM, EXCEPT FOR NICOTINE PATCH, ON RUE. OLD PATCH REMOVED FROM LUE. EDUCATION PROVIDED REGARDING POSSIBLE CONSEQUENCES OF NOT TAKEN MEDS & THE PURPOSE OF THE MEDS. PT WAS INFORMED THAT HE HAD THE RIGHT TO REFUSE. PT REQUESTED TO SPEAK WITH DOCTOR REGARDING DIET ORDER. PT STATED, "I AM DYING. I'M DEHYDRATED. I HAVE NOT HAD ANY WATER IN FOUR DAYS". PT HAD TRAY INFRONT OF HIM WITH THICKENED ORANGE JUICE & WATER. PT REFUSED TO DRINK OR EAT ANYTHING. PT ALSO ASKED "WHAT DO I NEED TO SIGN TO GET OUT OF HERE? I WANT TO LEAVE". THIS NURSE EXPLAINED THAT THE PT HAD RIGHTS, HOWEVER WOULD LIKE FOR HIM TO STAY TO CONTINUE TREATMENTS AND THAT WE COULD NOT LET HIM LEAVE HERE ON HIS OWN. DR. GRANT WAS CONTACTED BY THIS NURSE. TO SEE THE PT. PT IS CURRENTLY IN ROOM IN BED WATCHING TV. CALL LIGHT WITHIN REACH. WILL CONTINUE TO MONITOR.
--- NOTE | 2018-10-12 19:08 | NUR ---
AROUND 1445, THIS NURSE WAS COMING OFF OF LUNCH. THE OTHER NURSE ON DUTY NOTIFIED THIS NURSE THAT PT WAS UPSET & WAS ADAMANT ABOUT LEAVING AMA. PT REPORTED BEING UPSET FOR NOT BEING ABLE TO DRINK THIN LIQUIDS. THIS NURSE PROVIDED EDUCATION TO PT & SPOUSE REGARDING REASONS FOR DRErick ORDERS. THIS NURSE & SPOUSE ENCOURAGED PT TO TRY THE THICKENED WATER & SODA. PT FINALLY AGREED & ALSO TAKE AM MEDS. DIONNA, TUBING MILL OPERATOR OKAYED TO GIVE. PT HAS BEEN CONTENT. IS CURRENTLY IN ROOM WITH SPOUSE & FAMILY.
[2018-10-12 19:36] VITALS: BP 117/74
--- NOTE | 2018-10-13 02:37 | NUR ---
DIFFICULTY GETTING COMFORTABLE ON EITHER SIDE UNTIL 0100, HAS BEEN SLEEPING SINCE THEN. VOIDING PER URINAL. APPRECIATES NURSING ASSISTANCE WITH BED CONTROLS AND TURNING FAN ON. DECLINES OFFER FOR MORE THICKENED JUICES.
[2018-10-13 04:21] LABS: ALBUMIN 3.7 g/dL (3.4-5.0); CALCIUM 9.5 mg/dL (8.5-10.1); CREATININE 1.7 mg/dL (0.7-1.3); PHOSPHORUS 5.1 mg/dL (2.5-4.9); POTASSIUM 3.8 mmol/L (3.5-5.1)
[2018-10-13 07:20] VITALS: BP 128/55
[2018-10-13 19:48] VITALS: BP 127/75
--- NOTE | 2018-10-13 20:00 | NUR ---
ASSUMED CARE OF PATIENT AT 0715, PATIENT ALERT AND ORIENTED X 4. DENIES PAIN THIS SHIFT. PATIENT UP WITH ASSIST X 2 TO WHEELCHAIR. PATIENT TAKES MEDS CRUSHED WITH APPLESAUCE WITH NECTAR THICK LIQUIDS. PATIENT BILATERAL LUNGS COARSE WITH CONGESTED COUGH. PATIENT REFUSING NECTAR THICK LIQUIDS, PATIENT HAS JUICES IN BLACK REFREG. FROM FAMILY TO THICKEN IF HE WANTS, PATIENT WORKED WITH SPEECH THERAPY TODAY, MARCUS STIMULATION DONE. PATIENT HAS LEFT SIDE WEAKNESS AND DYSPHAGIA. PT/OT WORKED WITH PATIENT TODAY. WILL CONTINUE TO MONITOR. FALL PRECAUTIONS IN PLACE.
--- NOTE | 2018-10-14 04:12 | NUR ---
Assumed care for PT. @1900 pt laying in bed with hob elevated. Alert and oriented X4. slurred speech noted due to lft sided weakness. coarse lung sounds on assessment, denies pain but complains about wanting to drink thin liquids. Nurse educated pt about side effect and provided thick fluids with soda for pt to drink. Drank a liltle but still iinsists on wanting thin fluids. vss and assessment done. nicotine patch on left shoulder. max assist x2. insulin and lovenox shot given. fall prec in place and bed in lower position will continue to monitor.
--- NOTE | 2018-10-14 06:49 | HC ---
[facility] [place] [address] CONSULTATION Name: ARACELI LARSEN Room #: 514-P ADM IN M.R.#: [id number] Admission: 10/09/18 ������������������ Attend Phys: Brent Pelayo MD Discharge: ������������������ Date of : 57 Report #: [id number] THIS REPORT FOR: //name// CC: Brent Washingtonne Jhoan DATE OF SERVICE: 10/12/2018 NEURO BEHAVIOURAL STATUS EXAM: ATTENDING PHYSICIAN: Brent Pelayo M.D. CARGO SERVICE AGENT: Lit Benitez, PhD CLINICAL PRESENTATION: The patient is a 62-year-old -[place] male admitted to [facility] Rehabilitation Unit for a comprehensive inpatient rehabilitation program secondary to deficits from a cerebrovascular accident. Reportedly, he sustained a stroke and was seen in the Emergency room approximately 4-5 days prior to this most recent hospitalization. The patient was diagnosed with a stroke, but left the hospital against medical advice. He was subsequently readmitted for hospitalization because of functional deficits when he returned home. An MRI indicated a subacute right pontine paramedial stroke with left hemiparesis and left facial droop. The patient is on nectar thickened liquid. His assessment on admission to the rehabilitation unit included an acute/subacute right pontine CVA, left-sided hemiparesis, left facial droop with dysarthria, dysphagia, history of coronary artery disease, history of peripheral vascular disease, diabetes mellitus type 2 and tobacco abuse. The patient is noted to have had a cardiac stent placement and a prior CVA without residual. A complete description of his medical condition and history can be found in his medical records. Neuropsychological consultation was requested to provide assistance in the assessment of cognitive and emotional status and to provide recommendations. Prior to this most recent admission and deterioration in his medical condition, the patient was living independently. He has 2 children and he is . He reports having worked in [employer] prior to his admission. He denies a prior history of cannabis, alcohol or other drug abuse. He is a high school graduate. TECHNIQUE UTILIZED: Clinical interview, review of medical records, staff consultation and behavioral observation, mini mental status exam to a standard version. EXAMINATION FINDINGS: He is left hand dominant. The patient was alert and cooperative with the assessment. However, he frequently requested a glass of [facility] [address] [place] [address] CONSULTATION Name: ARACELI LARSEN Room #: 514-P [facility] IN .R.#: [id number] Admission: 10/09/18 ������������������ Attend Phys: Brent Pelayo MD Discharge: ������������������ Date of : 56 Report #: [id number] water. Upon discussion with nursing, he has been told numerous times of swallowing precautions and requirement for nectar-thickened liquid. He presents with poor insight, dysarthric verbal expression, anxiety and depressed mood. He indicates his symptoms to include appetite and sleep. He also appears anxious and depressed. His performance on the MMSE-2 brief version was extremely low with a raw score of 12-16, which is a T score of 26. However, the patient was 3/3 for initial registration, 4/5 for orientation to time and 5/[address]. He was 0/3 for immediate recall of 3 items after a brief time delay and distraction. Performance on the MMSE-2 standard version was extremely low with a raw score of 21, T score of 24 percentile and rank of less than 1. He is 1/5 for serial sevens, 2/2 for naming, 1/1 for repetition, 3/3 for auditory comprehension. He could read and follow single command. He was able to dictate a sentence. Drawing was not successful as he had to use his right hand because of the left hemiparesis. At this time, the patient is presenting with deficits in cognitive functioning that includes poor insight and impairment in memory, concentration, executive functioning and visual-spatial construction are suggested. DIAGNOSTIC IMPRESSION: Vascular neurocognitive disorder, with decreased insight-extent to be determined, likely in the moderate range. Adjustment disorder with anxiety and depressed mood. RECOMMENDATIONS: Continued neuropsychological services to assist in adjustment. The use of distraction along with continued explanation for the necessary changes in his diet. Presenting him with thickened clear water, may improve the visual stimulation to assist with compliance. Additionally, the use of relaxation techniques including breathing strategies will also be of benefit to assist in the management of anxiety. Family education into his deficits and assist with recommendations. A followup neuropsychological assessment is indicated to clarify the extent of his deficits. Thank you very much for allowing me to provide the consultation on this patient. ��������������������������������������������� <ELECTRONICALLY SIGNED> ���������������������������������������� By: Lit Benitez, PhD ��������������������������������������������� 10/14/18 [id number] 2034 Lit Benitez, PhD /nt
[2018-10-14 07:30] VITALS: BP 141/88
--- NOTE | 2018-10-14 13:01 | NUR ---
team meeting, recommendation : re team, speech to communicate with on pt non compliance and encourage him to cont working with therapies and vital stim with speech, aspiration risk on thin liquid, vs peg tub, cont compliance with thicken liquids nectar. will cont following as needed for dc needs.
[2018-10-14 19:41] VITALS: BP 143/84
--- NOTE | 2018-10-14 20:13 | NUR ---
assumed care at approx 0715. patient a/o x4. denies pain. vss. refusing nectar thickened liquids. patient spoke to provider regarding thin liquids being unsafe at this time. patient participated in therapy. left afo brace ordered. max a of 2 transfer. accucheck achs, treated with insulin per orders. patient voiding per urnial. nicotine patch applied. nystatin administered, improvement noted on tongue. meds given crushed in applesauce per speech therapy order. patient on room air. fall precautions in place. resting in bed at change of shift.
--- NOTE | 2018-10-15 04:47 | NUR ---
TAKING NO NECTAR THICKENED LIQUIDS TONIGHT WHEN OFFERED. DENIES PAIN. APPRECIATES HELP TURNING HIM ALL THE WAY TO HIS SIDE. USING URINAL WITH ASSIST ONLY WITH EMPTYING IT. WANTS TO DISCUSS HIS SITUATION FURTHER WITH DR GIBSON THIS MORNING. EXPLAINED TO PATIENT CONCEPT OF AFO TO PREVENT FOOT DROP ONCE HE GETS UP AND WALKING IT WILL BE HELPFUL.
[2018-10-15 05:54] LABS: ABSOLUTE NEUTROPHILS 6.3 thou/uL (1.4-8.2); BASOPHILS 0.7 % (0.0-2.0); EOSINOPHILS 1.1 % (0.0-3.0); HEMATOCRIT 38.8 % (42.0-52.0); HEMOGLOBIN 12.9 gm/dL (14.0-18.0); LYMPHOCYTES 25.7 % (24.0-44.0); MCH 31.7 pg (26.0-34.0); MCHC 33.4 g/dL (28.0-37.0); MCV 94.8 fL (80.0-100.0); MONOCYTES 6.8 % (1.0-8.0); PLATELET COUNT 312 thou/uL (150-400); POLYS 65.7 % (36.0-66.0); RBC 4.09 mil/uL (4.50-6.00); RDW 12.7 % (10.5-14.5); WBC 9.7 thou/uL (4.0-11.0)
[2018-10-15 06:07] LABS: CALCIUM 9.2 mg/dL (8.5-10.1); CREATININE 1.6 mg/dL (0.7-1.3); MAGNESIUM 1.9 mg/dL (1.8-2.4); POTASSIUM 3.7 mmol/L (3.5-5.1)
[2018-10-15 07:20] VITALS: BP 110/72
--- NOTE | 2018-10-15 14:28 | NUR ---
Patient participated in community reintegration on 10/15/18 with SPEECH THERAPY. Refer to documentation by SPEECH THERAPY.
--- NOTE | 2018-10-15 15:59 | NUR ---
ASSUMED CARE AT APPROX 0715. PATIENT A/O X4. DENIES PAIN. SLURRED SPEECH NOTED. PATIENT CONTINUING TO REFUSE NTL. IV FLUIDS ORDERED, IV TEAM ROUNDED ON PATIENT TO START IV. FLUIDS TO BE ADMINSITERED THIS EVENING AFTER THERAPY. BLOOD GLUCOSE MONITORED, TREATED PER ORDERS. NYSTATIN APPLIED WITH DENTAL SWAB TO PREVENT ASPIRATION. FALL PRECAUTIONS IN PLACE. SWALLOW PRECAUTIONS IN PLACE. RESTING IN BED. WILL CONTINUE TO MONITOR.
[2018-10-15 19:38] VITALS: BP 144/55
--- NOTE | 2018-10-16 03:12 | NUR ---
BACK TO BED WITH ONE PERSON ASSIST. ONE BAG OF NORMAL SALINE GIVEN IV, PATIENT IS STILL NOT WILLING TO DRINK NECTAR THICK LIQUIDS. TURNING SELF IN BED, MOST COMFORTABLE COMPLETELY ON HIS SIDE (LEFT OR RIGHT)
--- NOTE | 2018-10-16 07:15 | NUR ---
Pt PARTICIPATED IN COMMUNITY REINTEGRATION ON 10/15/[address] P[address] REFER TO ST DOCUMENTATION.
[2018-10-16 07:44] VITALS: BP 130/93
--- NOTE | 2018-10-16 15:09 | NUR ---
ASSUMED CARES AT 0700. PT AWAKE, ALERT AND ORIENTED *4, SOME IMPULSIVENESS. DENIES PAIN. VITALS REMAIN STABLE. PT CONTINUES TO HAVE LEFT SIDED HEMIPARESIS. CONTINUES TO HAVE DYSPHAGIA, ON NECTAR THICK LIQUIDS, TAKING THIN LIQUIDS ON SIPPY CUP WITH SPEECH THERAPIST SUPERVISION ONLY AND TOLERATED WELL. UP WITH MIN ASSIST (1-2) PIVOT TRANSFERS AND TOLERATED WELL. Q1H VISUAL CHECKS. CALL LIGHT WITHIN REACH. FALL PRECAUTIONS IN PLACE
[2018-10-16 21:15] VITALS: BP 156/107; BP 156/96
--- NOTE | 2018-10-17 03:18 | NUR ---
assumed care at approx 1900 evening 10/16. pt lying in bed with head of bed elevated at change of shift. pt forgetful and somewhat impulsive at times. pt with speech difficult to understand at times. pt assisted up to bsc to void and pt also using urinal at times. pt given Tylenol po for c/o back pain. pt appears to be sleeping soundly with hourly rounding checks. bed alarm on and call light in reach. will continue to monitor.
[2018-10-17 04:47] LABS: CALCIUM 9.2 mg/dL (8.5-10.1); CREATININE 1.3 mg/dL (0.7-1.3); POTASSIUM 3.7 mmol/L (3.5-5.1)
[2018-10-17 07:30] VITALS: BP 142/94
--- NOTE | 2018-10-17 12:20 | NUR ---
ASSUMED CARES AT 0700. PT ORIENTED*2-3, CONFUSED AND FORGETFUL. DENIES PAIN. VITALS REMAIN STABLE. SKIN REMAINS INTACT. PT CONTINUES TO HAVE LEFT SIDED HEMIPARESIS, LEFT FACIAL DROOP AND DYSPHAGIA. PT STILL ON HONEY THICKENED LIQUIDS R/T SWALLOWING PRECAUTIONS, REFUSES TO DRINK ANY OF THE THICKENED FLUIDS, THIS AM PT WANTED TO SWALLOW HIS PILLS WHOLE AND DRY WITHOUT ANY PUDDING OR DRINK, ABLE TO GET HIM TO TAKE A SIP OF THICKENED WATER AND A SPOON OF APPLE SAUCE AND WAS ABLE TO SWALLOW PILLS WITHOUT DIFFICULTY. MEALS WITH ST AT LUNCH. UP WITH 1 MIN ASSIST PIVOT TRANSFERS AND TOLERATED WELL. Q1H VISUAL CHECKS. CALL LIGHT WITHIN REACH. FALL PRECAUTIONS IN PLACE
--- NOTE | 2018-10-17 12:57 | NUR ---
Nutrition: Pt seen for weekend LOS on rehab unit. Admit with CVA, left hemiparesis, dysphagia. Requires modified solids/liquids and has been refusing nectar thick liquids. ST working with pt, conducting NMES and trialing thin liquids with pt. Pt eats variable amounts of meals from 10-100% per records. Observed > 50% of lunch at time of visit and pt was still eating. Pt reports no weight loss and good appetite prior to admit. Sampled magic cup and would prefer ensure pudding instead. Will change order. BG 137-245. Hx DM, will add carb controlled to diet order. Place as low risk with interventions in place.
--- NOTE | 2018-10-18 05:42 | NUR ---
TURNED TO SIDE 3 TIMES THIS SHIFT PATIENT REQUESTED. TYLENOL FOR HEADACHE AT MIDNIGHT WAS EFFECTIVE. TOOK TYLENOL WITH A SMALL AMOUNT OF APPLESAUCE. STILL REFUSING NECTAR THICK LIQUIDS. QUIET FOR THE MOST PART, BUT TALKED WITH VISITOR APPROX 30 MINUTES, SPENT THE SAME AMOUNT OF TIME ON THE PHONE, AND WAS CURIOUS HOW MANY DAYS OF THE WEEK I WORK ( HE NOTICES THAT I HAVE WORKED A FEW EXTRA SHIFTS LATELY AND HAVE FREQUENTLY TAKEN CARE OF HIM IN HIS BRIEF TIME HERE SO FAR ) DID NOT USE THE CALL LIGHT YOVANNY, BUT HAS BEEN PATIENT WHILE SPEAKING OUT WITH HIS ROOM NEAR NURSE STATION.
[2018-10-18 08:03] VITALS: BP 134/64
--- NOTE | 2018-10-18 11:47 | NUR ---
ASSUMED CARE AT APPROX 0715. PATIENT A/O X4. DENIES PAIN. UP X1 MOD-MAX ASSISST PIVOT TRANSFER TO , AMBULATING WITH THERAPY. LEFT AFO IN PLACE WHEN AMBULATING, GAUZE IN PLACE TO CUSHION INNER ANKLE FROM BRACE. MEDS ADMINISTERED CRUSHED IN PUDDING. FALL PRECAUTIONS IN PLACE. PATIENT ABLE TO TURN SELF IN BED, CALLS FOR ASSIST TO TURN TO RIGHT SIDE. USING CALL LIGHT APPROPRIATELY THIS AM, STILL INFREQUENTLY CALLS OUT IN STEAD OF USING LIGHT, VISIBLE FROM NURSES STATION. WILL CONTINUE TO MONITOR.
[2018-10-18 19:30] VITALS: BP 149/81
--- NOTE | 2018-10-19 04:22 | NUR ---
PT FORGETFUL AND SPEECH SOMETIMES DIFFICULT TO UNDERSTAND. POSITION CHANGED Q2H THROUGH THE NIGHT USED URINAL WITH NO INCONTINENCE. TOOK HS MEDS W/O PROBLEM. SLEPT INTERMITTANTLY THROUGH THE NIGHT.
[2018-10-19 08:15] VITALS: BP 150/84
--- NOTE | 2018-10-19 11:48 | NUR ---
ASSUMED CARE OF PT AT 0715. PT IS A&OX4 AND VITAL SIGNS ARE STABLE. PT HAS SIGNIFICANT LEFT SIDED WEAKNESS AND APHAGIA. MEDICATIONS CRUSHED AND GIVEN IN APPLESAUCE WITH NECTAR THICK LIQUIDS. PT UP IN DINING ROOM FOR MEALS AND AMBULATED WITH STAFF ON UNIT. FALL PRECAUTIONS IN PLACE AND NURSING WILL CONTINUE TO MONITOR.
[2018-10-19 19:30] VITALS: BP 145/93
--- NOTE | 2018-10-20 01:51 | NUR ---
ASSESSMENT: PT REMAIN ALERT AND ORIENT TIMES THREE. DENIES PAIN. SAT ON SIDE OF BED TO EAT A SNACK THIS SHIFT,. TURN EVERY TWO HOURS,. SLOW PROGRESS TOWARDS DC GOALS, WILL CONTINUE TO MONITOR.,
[2018-10-20 08:00] VITALS: BP 146/84
--- NOTE | 2018-10-20 15:26 | PLAN ---
[facility] [place] [address] REHAB UNIT PLAN OF CARE Name: ARACELI LARSEN Room #: 514-P ADM IN M.R.#: [id number] Admission: 10/09/18 ������������������ Attend Phys: Brent Pelayo MD Discharge: ������������������ Date of : 57 Report #: [id number] THIS REPORT FOR: //name// CC: Brent Washingtonne Jhoan DATE OF SERVICE: 10/11/2018 The patient was seen back in followup. He is in no distress. Temperature 36.7, pulse 77, respirations 20, and blood pressure 122/70. He has been working in therapies with getting up with physical therapist 8 feet with a front-wheeled walker. He is requiring max assist for basic sit to stand transfers, occasional mod assist. He is dependent for lower body dressing, touch assist, upper body dressing. In speech therapy, he is on mechanical soft nectar thickened liquid diet. ASSESSMENT: 1. Subacute right pontine cerebrovascular accident. 2. Left-sided hemiparesis. 3. Left facial droop with dysarthria. 4. Dysphagia, nectar thickened liquids. 5. History of coronary artery disease. 6. History of peripheral vascular disease. 7. Diabetes mellitus type 2. 8. Tobacco abuse. PLAN: The overall plan of care is based on the preadmission screen, post-admission physician evaluation and information garnered from therapy assessments. 1. Estimated length of stay is probably at least 2-3 weeks pending progress. 2. Medical prognosis is reasonably good. 3. Anticipated interventions include the interdisciplinary acute inpatient rehabilitation program. 4. Anticipated functional outcomes would be for him to initially be modified independent at a wheelchair level as well as to improve as far as communication and swallowing. 5. Discharge destination would be back home with his . There is a son that is involved as well. 6. Expected therapy by discipline includes PT, OT and speech 1 hour per day each five days a week throughout the duration of the acute inpatient stay. ��������������������������������������������� <ELECTRONICALLY SIGNED> ���������������������������������������� By: Brent Pelayo MD ��������������������������������������������� 10/20/18 1526 [id number] Brent Pelayo MD /nt
--- NOTE | 2018-10-20 15:26 | H ---
[facility] [place] [address] HISTORY AND PHYSICAL Name: ARACELI LARSEN Room #: 514-P ADM IN M.R.#: [id number] Admission: 10/09/18 ������������������ Attend Phys: Brent Pelayo MD Discharge: ������������������ Date of : 57 Report #: [id number] THIS REPORT FOR: //name// CC: Brent Staples DATE OF SERVICE: 10/09/2018 HISTORY AND PHYSICAL/POSTADMISSION PHYSICIAN EVALUATION HISTORY OF PRESENT ILLNESS: The patient is a 62-year-old -[place] male who was originally admitted 10/07/[address] [facility]. He had had a prior Emergency Department visit 4-5 days prior to his acute hospital stay when he was diagnosed with a CVA, but per report left AMA. He was having more and more problems functioning at home. MRI was consistent with a subacute right pontine paramedial stroke. He is noted to have left-sided weakness and left facial droop, was evaluated by speech therapy placed on nectar thickened liquids. He has significant left-sided weakness. He has been admitted now for acute in-hospital inpatient rehabilitation. PAST MEDICAL HISTORY: Includes hypertension, diabetes mellitus type 2, CHF, cardiac stent placement with non-ST elevation myocardial infarction 08/22/2018, coronary artery disease, hyperlipidemia, prior CVA without residual. There is a history of peripheral neuropathy. ALLERGIES: No known drug allergies. MEDICATIONS: Please see the full medication listing. This includes vitamins, herbal supplements. FAMILY HISTORY: Heart disease, cancer, hypertension. HABITS: Tobacco abuse noted to be an every day smoker. There is history of some alcohol usage. 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 There are a few steps in. The patient had been independent, ambulatory prior to the current stroke. The son that lives there as well and can assist and apparently does not work outside the home. REVIEW OF SYSTEMS: No current complaints of chest pain, shortness of breath or abdominal discomfort. PHYSICAL EXAMINATION: GENERAL: A 62-year-old -[place] male in no obvious distress. VITAL SIGNS: Temperature 98.1, pulse 83, respirations 18, blood pressure [facility] [address] [place] [address] HISTORY AND PHYSICAL Name: ARACELI LARSEN Room #: 514-P [facility] IN .R.#: [id number] Admission: 10/09/18 ������������������ Attend Phys: Brent Pelayo MD Discharge: ������������������ Date of : 57 Report #: [id number]/84. The patient is alert. HEENT: Appeared to be benign except he does have left facial droop with some slurred speech and dysarthria. CHEST: Sounded clear to auscultation. CARDIOVASCULAR: Regular rate and rhythm. ABDOMEN: Bowel sounds positive, nontender. GENITOURINARY AND RECTAL: Deferred. No obvious visual field neglect to confrontation. NEUROLOGIC: He has definite left upper extremity weakness, a grade 3 to 3- left lower extremity strength is probably a grade 3 to 3-. DTRs are trace. There is no clonus. Sensation was reasonably intact to simultaneous stimulation both upper and lower extremities. Functionally, he has been needing assistance with basic bed mobility and has been mod assist with attempted transfers. ASSESSMENT: A 62-year-old -[place] male with the following problem list: 1. Acute subacute right pontine cerebrovascular accident. 2. Left-sided hemiparesis. 3. Left facial droop with dysarthria. 4. Dysphagia, on nectar thickened liquids. 5. History of coronary artery disease. 6. History of peripheral vascular disease. 7. Diabetes mellitus type 2. 8. Tobacco abuse. PLAN: The patient is admitted for acute in-hospital inpatient rehabilitation. From a postadmission physician evaluation perspective, there are no relevant changes since the preadmission screening. Please see the above review of prior and current medical and functional conditions and comorbidities. Please see the patient's previous and current functional status. As far as risk of complications, he has multiple medical comorbidities as noted above. Initial plan of care involves the interdisciplinary acute inpatient rehabilitation program with the goal maximizing his functional independence, he can hopefully return back to his prior living situation. Measurable functional goals would be for him to become modified independent at a walker level along with improvement with his communication and swallowing. Prognosis is reasonably good with estimated length of stay probably 2-3 weeks pending progress. Potential barriers would include his multiple medical comorbidities and decreased functional status. ��������������������������������������������� <ELECTRONICALLY SIGNED> ���������������������������������������� By: Brent Pelayo MD ��������������������������������������������� 10/20/18 1526 1025 [id number] Brent Pelayo MD /nt
--- NOTE | 2018-10-20 15:26 | H ---
[facility] [place] [address] HISTORY AND PHYSICAL Name: ARACELI LARSEN Room #: 514-P ADM IN M.R.#: [id number] Admission: 10/09/18 ������������������ Attend Phys: Brent Pelayo MD Discharge: ������������������ Date of : 57 Report #: [id number] THIS REPORT FOR: //name// CC: Brent Staples DATE OF SERVICE: 10/09/2018 HISTORY AND PHYSICAL/POST ADMISSION PHYSICIAN EVALUATION HISTORY OF PRESENT ILLNESS: The patient is a 62-year-old -[place] male originally admitted to [facility] 10/07/2018 with increased weakness that had actually started 4-5 days prior to his hospital admission. He was seen in the Emergency Department, noted to be diagnosed with a CVA and per report left AMA. He then was readmitted after having more and more problems functioning at home. MRI was consistent with an subacute right pontine paramedial stroke. He was noted to have left-sided weakness, left facial droop and initially was n.p.o. by speech therapy and now he is on a mechanical soft nectar thickened liquid diet. ��������������������������������������������� <ELECTRONICALLY SIGNED> ���������������������������������������� By: Brent Pelayo MD ��������������������������������������������� 10/20/18 1526 1020 [id number] Brent Pelayo MD /nt
--- NOTE | 2018-10-20 16:18 | NUR ---
ASSUMED CARE OF PT AT 0715. PT IS A&OX4 AND VITAL SIGNS ARE STABLE. PT REPORTS NO PAIN AND PARTICIPATED IN SCHEDULED THERAPIES. PT EDUCATED ABOUT SWALLOWING PRECAUTIONS AND HYDRATION. PT STATES THAT HE DOES NOT LIKE THICKENED FLUIDS AND "WONT DRINK THEM" PT TAKES MEDICAITONS CRUSHED IN PUDDING. PT TRANSFERS TO WITH 1 PERSON MIN-MOD ASSISTANCE WITH GAIT BELT AND WALKER. PERIPHERAL IV REMOVED AFTER PT REPORTED TO NURSE THAT IV SITE WAS BLEEDING. ON INSPECTION IV HAD BEEN DISLODGED AND WAS SUBSEQUENTLY REMOVED BY NURSE AND PRESSUSRE DRESSING PLACED. FALL PRECAUTIONS IN PLACE AND NURSING WILL CONTINUE TO MONITOR.
[2018-10-20 21:26] VITALS: BP 135/79
--- NOTE | 2018-10-21 01:51 | NUR ---
PT ASSESSMENT COMPLETED AND VSS. MEDS GIVEN ORDERED AND WELL TOLERATED. FALL PRECAUTIONS IN PLACE. PT VOIDING PER URINAL DARK YELLOW URINE. PT REFUSED TO DRINK THIS EVENING EVEN AFTER EDUCATION AND ENCOURAGEMENT. PT STATES THAT HE DOES NOT LIKE THICKENED LIQUIDS. PRN TYLENOL HELPFUL FOR BACK PAIN. SLEEPING WELL. WILL CONTINUE TO MONITOR FREUQENTLY.
[2018-10-21 05:59] LABS: ABSOLUTE NEUTROPHILS 7.6 thou/uL (1.4-8.2); BASOPHILS 0.7 % (0.0-2.0); HEMATOCRIT 34.9 % (42.0-52.0); HEMOGLOBIN 11.7 gm/dL (14.0-18.0); LYMPHOCYTES 24.8 % (24.0-44.0); MCH 31.5 pg (26.0-34.0); MCHC 33.4 g/dL (28.0-37.0); MCV 94.3 fL (80.0-100.0); MONOCYTES 7.2 % (1.0-8.0); PLATELET COUNT 292 thou/uL (150-400); POLYS 66.3 % (36.0-66.0); RDW 12.7 % (10.5-14.5); WBC 11.5 thou/uL (4.0-11.0)
[2018-10-21 06:09] LABS: CREATININE 1.2 mg/dL (0.7-1.3); MAGNESIUM 1.8 mg/dL (1.8-2.4); POTASSIUM 3.9 mmol/L (3.5-5.1)
[2018-10-21 07:30] VITALS: BP 131/82
--- NOTE | 2018-10-21 18:16 | NUR ---
Team conference held today. Recommendations discussed with the pt and his this afternoon. Tentative dc to home with HH planned for Saturday10/31/18. Pt has AFO brace on lle today and walked 100' with a rollar walker min A. He is min to mod with txs. He continues to need close supervision and a modified diet due to high risk for aspiration. instructed not to bring in foods from home without checking in with the nurse. Pt wbc's elev today and CXR with possible pneumonia. PO atb started. Pt's indicates that she will no longer be working and she will be able to provide 24hr supervision and care in the home. They are receptive to HH at [facility]. SNF benefit discussed as well should the pt not be ready to go directly home next week. Therapy to start working on stairs. Pt will need a rollar walker at [facility]. Will follow.
[2018-10-21 19:44] VITALS: BP 159/89
--- NOTE | 2018-10-21 21:38 | NUR ---
ASSUMED CARE OF PT AT 0715. PT IS A&OX4. AM LABS SHOWED INCREASE IN WBC AND ON ASSESSMENT PT HAD INCREASED COURSE CRACKLES IN THE LOWER LEFT LOBE AND UPPER RIGHT LOBE, PT IS AFEBRILE AND VITAL SIGNS ARE STABLE. PROVIDER MADE AWARE OF CHANGES IN STATUS AND ORDERS OBTAINED FOR CHEST X-RAY. RESULTS INDICATED BIBASILAR ATELECTASIS/PNEUMONITIS. ORDERS FOR PO ANTIBIOTICS, RT TREATMENTS, AND NURSING TO ENCOURAGE IS AND ORAL CARE. PT REEDUCATED BY NURSE AND SPEECH ABOUT SWALLOW PRECAUTIONS AND POSSIBLE CONSEQUENCES OF NOT FOLLOWING PRECAUTIONS INCLUDING PNEUMONIA. PT VERBALIZED UNDERSTANDING OF EDUCAITON AND STATES "I WANT TO GET BETTER, I DON'T WANT TO MAKE IT WORSE." PT TAKES MEDICATIONS CRUSHED IN PUDDING WITH NECTAR THICK LIQUIDS BETWEEN BITES. ACCU CHECKS AC/HS AND BG MANAGED WITH PO MEDICAITON AND INSULIN. FALL PRECAUTIONS IN PLACE AND NURSING WILL CONTINUE TO MONITOR.
--- NOTE | 2018-10-22 04:35 | NUR ---
TURNING SELF IN BED MORE EASILY TO HIS LEFT. GLAD TO KNOW HIS DATE FOR LEAVING (IT'S THE ) GUAFINESIN ORDERED, WAS GIVEN WHOLE ONE AT A TIME WITH APPLESAUCE WITHOUT S/SX OF CHOKING.
[2018-10-22 08:00] VITALS: BP 140/95
--- NOTE | 2018-10-22 10:44 | NUR ---
ASSUMED CARE AT 0700. PAITIENT IS ALERT AND ORIENTED . PATIENT HAS EXPRESSIVE APHAGIA. PATIENT CONTINUES ON NECTAR THICK LIQUIDS R/T SWALLOWING PRECAUTIONS. PATIENT HAS LEFT SIDED WEAKNESS. PATIENT WAS ABLE TO TAKE MEDS WHOLE IN PUDDING TODAY. PATIENT CONTINUES ON MARCUS STIM WITH S.T. PATIENT IS UP IN W/C WITH ASSIST OF 1-2 STAFF. LUNGS ARE COARSE AND DEMINISHED IN LEFT LOWER LOBE. ABD IS SOFT WITH BSX4. PATIENT VOIDS DIYA COLORED URINE PER URINAL. UP TO THE DINING ROOM FOR MEALS. FALL AND SAFETY PROTOCOLS IN PLACE. DENIES PAIN AT THIS TIME. PATIENT CONTINUES TO PROGRESS SLOWLY TOWARDS D/C GOALS. WILL CONTINUE TO MONITER.
[2018-10-22 20:14] VITALS: BP 174/103
[2018-10-22 23:00] VITALS: BP 148/86
--- NOTE | 2018-10-23 03:23 | NUR ---
ASSUMED CARE OF PT AT 0715. PT IS A&OX4 AND VITAL SIGNS ARE STABLE. ACCU CHECKS AC/HS AND BG MANAGED WITH PO MEDICATIONS AND INSULIN. PT ON NECTAR THICK LIQUIDS AND IS REFUSING TO DRINK THICKENED LIQUIDS AT THIS TIME. PT TAKES PO MEDICATION WHOLE OR CRUSHED IN PUDDING. PT HAS LEFT SIDED WEAKNESS AND IS BEING ENCOURAGED TO LAY ON RIGHT SIDE TO ENCOURAGE USE OF LEFT SIDE. EXPRESSIVE APHAGIA NOTED ON ASSESSMENT WELL COARSE CRACKLES BILATERALLY IN LUNGS. FALL PRECAUTIONS IN PLACE AND NURSING WILL CONTINUE TO MONITOR.
[2018-10-23 08:35] VITALS: BP 145/94
--- NOTE | 2018-10-23 14:52 | NUR ---
ASSUMED CARE AT 0700. PATIENT IS ALERT AND ORIENTED X4. PATIENT HAS EXPRESSIVE APHAGIA. PATIENT HAS LEFT SIDED WEAKNESS, AND LEFT FACIAL DROOP. LUNGS ARE COARSE AND DEMINISHED. PATIENT REMAINS ON ABT. NO ADVERSE AFFECTS NOTED. ABD IS SOFT WITH BS X4. PATIENT VOIDS DIYA COLORED URINE PER URINAL. PATIENT IS UP WITH ASSIST OF 1 STAFF AND GAIT BELT TO TRANSFER TO W/C. PATIENT IS OUT TO THE DINING ROOM FOR MEALS. FALL AND SAFETY PROTOCOLS IN PLACE. DENIES PAIN AT THIS TIME. CONTINUES TO PROGRESS SLOWLY TOWARDS D/C GOALS. WILL CONTINUE TO MONITER.
[2018-10-23 19:40] VITALS: BP 178/95
--- NOTE | 2018-10-24 02:27 | NUR ---
MEDS WITH APPLESAUCE, CONTINUES TO REFUSE NECTAR THICK LIQUIDS. TURNS SELF IN BED, BETTER TO THE LEFT THAN TO THE RIGHT. PILLOW BACKED BY WEDGE HELPS HIM TURN FURTHER TO THE SIDE THAN HE CAN GET HIMSELF. HARD TO UNDERSTAND BUT CAN USUALLY MAKE NEEDS KNOWN. USING URINAL 200-250 ML AT A TIME. PLEASANT
[2018-10-24 06:04] LABS: ABSOLUTE NEUTROPHILS 5.5 thou/uL (1.4-8.2); BASOPHILS 0.8 % (0.0-2.0); EOSINOPHILS 1.8 % (0.0-3.0); HEMATOCRIT 36.4 % (42.0-52.0); HEMOGLOBIN 12.1 gm/dL (14.0-18.0); LYMPHOCYTES 28.4 % (24.0-44.0); MCH 31.2 pg (26.0-34.0); MCHC 33.3 g/dL (28.0-37.0); MCV 93.8 fL (80.0-100.0); MONOCYTES 7.7 % (1.0-8.0); PLATELET COUNT 320 thou/uL (150-400); POLYS 61.3 % (36.0-66.0); RBC 3.88 mil/uL (4.50-6.00); RDW 12.6 % (10.5-14.5)
[2018-10-24 06:09] LABS: CALCIUM 9.3 mg/dL (8.5-10.1); CREATININE 1.1 mg/dL (0.7-1.3); MAGNESIUM 1.8 mg/dL (1.8-2.4); POTASSIUM 3.9 mmol/L (3.5-5.1)
[2018-10-24 08:55] VITALS: BP 127/87
--- NOTE | 2018-10-24 12:31 | NUR ---
Nutrition: pt continues to eat well, 75-100% last several days on modified diet. Vital Stim with ST. Stable weights. Ensure pudding provided. BG 137-215, on SSI. Continue as low risk.
--- NOTE | 2018-10-24 19:25 | NUR ---
ASSUMED CARE AT APPROX 0715. PATIENT A/O X4. SLURRED SPEECH. DENIES PAIN. MEDS GIVEN IN APPLESAUCE PER SPEECH THERAPY ORDERS. PATIENT PARTICIPATING IN THERAPY. STILL REFUSING NECTAR THICKENED LIQUIDS. UP X1, AFO BRACE IN PLACE FOR AMBULATING. PATIENT TURNING SELF IN BED. USES URINAL, CALLS FOR STAFF TO EMPTY. FALL PRECAUTIONS IN PLACE. UP IN WHEELCHAIR FOR MEALS. RESTING IN BED AT CHANGE OF SHIFT.
--- NOTE | 2018-10-25 00:52 | NUR ---
VOIDING PER URINAL WHILE SITTING STEADY AT EDGE OF BED. TAKING PILLS, EVEN LARGE ONES WITH PUDDING, EFFORT, AND CHIN TUCK. APPRECIATES STAFF ASSIST WITH PILLOWS AT HIS BACK AND BLANKETS TO COVER HIS FEET. BE ALARM ON
[2018-10-25 07:51] VITALS: BP 145/92
--- NOTE | 2018-10-25 07:55 | NUR ---
ASSUMED CARE AT 0700. PATIENT IS ALERT AND ORIENTED X4. PATIENT HAS LEFT SIDED WEAKNESS AND EXPRESSIVE APHAGIA. PATIENT REFUSES TO DRINK THE THICKENED LIQUIDS. LUNGS ARE COARSE AND DEMINISHED WITH AN OCCASIONAL COUGH. ABD IS SOFT WITH BSX4. VOIDS PER URINAL DIYA COLORED URINE. UP IN W/C WITH LEFT AFO ON TO THE D.R. FOR MEALS. FALL AND SAFETY PROTOCOLS IN PLACE. DENIES ANY PAIN AT THIS TIME. WILL CONTINUE TO MONITER.
[2018-10-25 19:30] VITALS: BP 163/91
--- NOTE | 2018-10-26 02:20 | NUR ---
PT LYING IN BED. VOIDING PER URINAL. DENIES PAIN. RESTING COMFORTABLY. NO NEEDS VOICED. CALL LIGHT WITHIN REACH. WILL CONTINUE TO PROVIDE FREQUENT OBSERVATION.
--- NOTE | 2018-10-26 07:43 | NUR ---
ASSUMED CARE AT 0700. PATIENT IS ALERT AND ORIENTED X4. PATIENT HAS EXPRESSIVE APHAGIA AND LEFT FACIAL DROOP. PATIENT HAS LEFT SIDED WEAKNESS. PATIENT IS UP TO THE D.R. PER W/C WITH LEFT LEG BRACE ON FOR MEALS. LUNGS ARE COARSE AND DEMINISHED. PATIENT REMAINS ON ABT FOR ASPIRATION PNUEMONIA. PATIENT CONTINUES TO REFUSE NECTAR THICK LIQUIDS. PATIENT VOIDS DIYA COLORED URINE PER URINAL. PATIENT IS UP WITH ASSIST OF 1 STAFF AND GAIT BELT TO W/C. FALL AND SAFETY PROTOCOLS IN PLACE. DENIES ANY PAIN AT THIS TIME. CONTINUES TO PROGRESS SLOWLY TOWARDS D/C GOALS. WILL CONTINUE TO MONITER.
[2018-10-26 10:21] VITALS: BP 109/66
[2018-10-26 20:21] VITALS: BP 144/78
--- NOTE | 2018-10-26 22:30 | NUR ---
SLIDING SCALE INSULIN FOR BLOOD SUGAR OF 231, PATIENT INSTRUCTED THAT HE WILL START METFORMIN TOMORROW AND THAT IT WILL SENSITIZE HIS CELLS TO THE INSULIN HIS BODY MAKES AND, IN THEORY, HE SHOULD NEED LESS INSULIN INJECTIONS. UP TO WC AND FROM WC TO TOILET FOR UNMEASURED URINE AND MODERATE SIZE BM. ABLE TO TAKE SMALL TURNING STEPS AFTER AFO PLACED ON LEFT FOOT. PLEASANT
[2018-10-27 08:00] VITALS: BP 147/90
--- NOTE | 2018-10-27 11:58 | NUR ---
ASSUMED CARE OF PT AT 0715. PT IS A&OX4 AND VITAL SIGNS ARE STABLE. ACCU CHECKS AC/HS AND BG MANAGED WITH INSULIN AND ORAL MEDICATIONS. PT REPORTS NO PAIN AND PARTICIPATED IN SCHEDULED THERAPIES. PT TAKES MEDICATIONS WHOLE IN PUDDING WITH SIPS OF NECTAR THICK LIQUIDS. PT TRANSFERS WTIH 1 PERSON ASSISTANCE WITH GAIT BELT AND WALKER, AFO TO LEFT LEG TO W/C. FALL PRECAUTIONS IN PLACE AND NURSING WILL CONTINUE TO MONITOR.
--- NOTE | 2018-10-27 17:38 | NUR ---
PT REPORTS A MINIMUM OF 3 EPISODES OF LIQUID STOOL THIS AFTERNOON. PROVIDER CALLED AND MEDICATIONS AND LABS ORDERED. MEDICATION ADMINISTERED AND NURSING WILL CONTINUE TO MONITOR.
[2018-10-27 19:25] VITALS: BP 152/94
--- NOTE | 2018-10-28 02:17 | NUR ---
PATIENT ASSESSED AND IS ALERT X 4. SKIN WARM AND DRY. HAS LEFT SIDE WEAKNESS FROM STROKE. HAS ASPHAGIA ALSO. UP WITH 1 PERSON ASSIST /WALKER GAIT BELT, MIN-MOD ASSIST. TAKS FOOD WITH THICKEN FLUIDS BUT HAS BEED REFUSING SOME OF IT. SWOLLOWED OK FOR NOC RN. HOB ELEVATED. HAS NO WOUNDS. LUNGS COURSE BILATERALLY. TURNED SELF IN BED Q2 HOURS AND PRN. ON ROOM AIR. LEFT LEG HAS A AFO BOOT WHEN UP. DENIES ANY PAIN.CONT PLAN OF CARE. MOVES ON HIS OWN IN BED.
[2018-10-28 05:41] LABS: ABSOLUTE NEUTROPHILS 6.2 thou/uL (1.4-8.2); BASOPHILS 0.7 % (0.0-2.0); EOSINOPHILS 1.7 % (0.0-3.0); LYMPHOCYTES 29.1 % (24.0-44.0); MCH 31.5 pg (26.0-34.0); MCHC 33.4 g/dL (28.0-37.0); MCV 94.3 fL (80.0-100.0); MONOCYTES 7.1 % (1.0-8.0); PLATELET COUNT 346 thou/uL (150-400); POLYS 61.4 % (36.0-66.0); RBC 3.82 mil/uL (4.50-6.00); RDW 12.4 % (10.5-14.5); WBC 10.1 thou/uL (4.0-11.0)
[2018-10-28 05:51] LABS: CALCIUM 9.2 mg/dL (8.5-10.1); CREATININE 1.3 mg/dL (0.7-1.3); MAGNESIUM 1.7 mg/dL (1.8-2.4); POTASSIUM 4.4 mmol/L (3.5-5.1)
[2018-10-28 07:30] VITALS: BP 138/43
--- NOTE | 2018-10-28 12:10 | NUR ---
ASSUMED CARES AT O700. PT AWAKE, ALERT AND ORIENTED* 4 BUT FORGETFUL. MUMBLED SPEECH. DENIES PAIN. VITALS REMAINED STABLE. SKIN REMAINS DRY AND INTACT. PT REMAINS ON SWALLOWING PRECAUTIONS, NECTAR THICK FLUIDS ONLY. UP WITH 1 MIN ASSIST, AMBULATING WITH 1 ASSIST WITH AFO ON LEFT LEG AND TOLERATED WELL. NO REPORT OF LOOSE STOOLS. COUGH NOTED *1 THIS AM WITH MEDICATIONS. Q1H VISUAL CHECKS. CALL LIGHT WITHIN REACH. FALL PRECAUTIONS IN PLACE
--- NOTE | 2018-10-28 12:38 | NUR ---
team meeting, recommendation : dc 28th, [facility] ( pt, ot, st, [facility] nursing,) fww. diet will be nectar thick with [facility] soft diet. has already worked with st and pt for education and is going to work with ot on adl's. will cont following as needed for dc needs.
[2018-10-28 16:20] VITALS: BP 138/43
--- NOTE | 2018-10-28 16:26 | NUR ---
FAXED REFERRAL TO [facility] SPOKE WITH DAVID IN INTAKE SHE RECEIVED REFERRAL AND CAN ACCEPT AT PA 10/30. DCP TO FOLLOW.
[2018-10-28 19:20] VITALS: BP 177/103
--- NOTE | 2018-10-29 02:16 | NUR ---
GUAIFENESIN WITH APPLESAUCE, PATIENT CAREFUL TO RAISE HOB AND SWALLOW SLOWLY WITH CHIN TUCK. SMALL AMOUNT SSI FOR BLOOD SUGAR OF 169. PLEASANT AND TURNING SELF WITH REQUESTED ASSIST TO GET ON HIS RIGHT SIDE AND ONCE TO LIE ON HIS STOMACH.
[2018-10-29 08:04] VITALS: BP 138/87
--- NOTE | 2018-10-29 12:01 | NUR ---
ASSUMED CARES AT 0700. PT IN BED, AWAKE, ALERT AND ORIENTED*4. DENIES PAIN. VITALS REMAIN STABLE. PT CONTINUES TO HAVE EXPRESSIVE APHASIA AND DYSPHAGIA, REMAINS ON ASPIRATION PRECAUTIONS. CONTINUES TO HAVE LEFT SIDED WEAKNESS, AFO ON LEFT LEG DURING AMBULATION. PT AMBULATING WITH 1 MIN ASSIST, GAITBELT AND WALKER AND TOLERATED WELL. MEALS AT THE DINING AREA SITTING UPRIGHT. Q1H VISUAL CHECKS. CALL LIGHT WITHIN REACH. FALL PRECAUTIONS IN PLACE
--- NOTE | 2018-10-29 14:31 | NUR ---
Patient participated in community reintegration on 10/29/18 with PHYSICAL THERAPY. Refer to documentation by DEVANTE PHYSICAL THERAPIST.
--- NOTE | 2018-10-30 07:09 | NUR ---
PATIENT ALERT AND ORIENTED X4. DENIES PAIN. BS WAS 153, SS INSULIN HELD D/T THE FACT HE BOTTOMS OUT EASILY WITH EVEN THE SMALLEST DOSE. L SIDE WEAK. SLEPT MOST OF THE NIGHT.
[2018-10-30 07:37] VITALS: BP 128/78
--- NOTE | 2018-10-30 08:09 | NUR ---
ASSUMED CARE AT 0700. PATIENT IS ALERT AND ORIENTED X4. PATIENT HAS EXPRESSIVE APHAGIA AND LEFT SIDED FACIAL DROOP, AND LEFT SIDED WEAKNESS. PATIENT IS UP WITH ASSIST OF 1 GAIT BELT AND BRACE ON. PATIENT LUNGS ARE COARSE AND DEMINISHED. PATIENT REMAINS ON RESPIRATORY TX. ABD IS SOFT WITH BSX4. FALL AND AND SAFETY PROTOCOLS IN PLACE. DENIES ANY PAIN AT THIS TIME. WILL CONTINUE TO MONITER.
[2018-10-30 19:25] VITALS: BP 124/58
--- NOTE | 2018-10-31 00:22 | NUR ---
PT ASSESSMENT COMPLETED AND VSS. MEDS GIVEN ORDERED AND WELL TOLERATED. FALL PRECAUTIONS IN PLACE. EXCITED ABOUT GOING HOME TOMORROW. SAT WNL ON RA. RT TREATMENTS CONTINUE. TURN Q 2 HOURS. SLEEPING WELL. WILL CONTINUE TO MONITOR FREQUENTLY.
[2018-10-31 06:11] LABS: BASOPHILS 0.9 % (0.0-2.0); EOSINOPHILS 1.5 % (0.0-3.0); HEMATOCRIT 35.7 % (42.0-52.0); HEMOGLOBIN 11.8 gm/dL (14.0-18.0); LYMPHOCYTES 32.4 % (24.0-44.0); MCH 31.3 pg (26.0-34.0); MCHC 33.1 g/dL (28.0-37.0); MCV 94.7 fL (80.0-100.0); MONOCYTES 6.5 % (1.0-8.0); PLATELET COUNT 361 thou/uL (150-400); POLYS 58.7 % (36.0-66.0); RBC 3.77 mil/uL (4.50-6.00); RDW 12.5 % (10.5-14.5); WBC 8.6 thou/uL (4.0-11.0)
[2018-10-31 06:29] LABS: CALCIUM 9.1 mg/dL (8.5-10.1); CREATININE 1.2 mg/dL (0.7-1.3); MAGNESIUM 1.8 mg/dL (1.8-2.4)
[2018-10-31] MEDS ORDERED: TOPROL XL25 MG PO (08:01)
[2018-10-31] MEDS ORDERED: LISINOPRIL10 MG PO (08:01)
[2018-10-31] MEDS ORDERED: CLOPIDOGREL75 MG PO (08:01)
[2018-10-31] MEDS ORDERED: DEMADEX20 MG PO (08:01)
[2018-10-31] MEDS ORDERED: NICOTINE1 EAC2 TRANSDERM (08:01)
[2018-10-31] MEDS ORDERED: LIPITOR80 MG PO (08:01)
[2018-10-31] MEDS ORDERED: VENTOLIN HFA 1818 GM INH (08:01)
[2018-10-31] MEDS ORDERED: PROBIOTIC1 EAC1 PO (08:01)
--- NOTE | 2018-10-31 10:04 | NUR ---
PT DISCHARGING TODAY TO HOME WITH [facility] NOTIFIED DALTON IN ADM OF DISCHARGE AND SHE WILL NOTIFY PT TIME OF VISITS.
[2018-10-31 10:29] VITALS: BP 138/43
[2018-10-31 10:34] VITALS: BP 138/43
[2018-10-31 11:28] VITALS: BP 138/43
--- NOTE | 2018-10-31 11:40 | NUR ---
ASSUMED CARE OF PT AT 0715. PT IS A&OX4 AND VITAL SIGNS ARE STABLE. BLOOD GLUCOSE MONITORED AND MANGED WITH ORAL MEDICATIONS. IN PT ROOM FOR DISCHARGE EDUCATION AND SIGNED PAPERWORK. AND FAMILY REMOVED ALL BELONGINGS FROM ROOM AND PT TAKEN BY W/C WITH NURSING STAFF TO MAIN ENTERANCE. PT GIVEN EDUCATION ABOUT MEDICAITONS, D/C INSTRUCTIONS, AND DISEASE PROCESSES. PT AND FAMILY EXPRESSED UNDERSTANDING.
== END 2018-10-31 11:30 | disposition home health service (06) | DRG 56 ==
PROVIDERS: Hospitalist; Nurse Practitioner; ADMIT Physical Medicine & Rehabilitation
DX: I69.354 Hemiplegia and hemiparesis following cerebral infarction affecting left non-dominant side (principal); I63.9 Cerebral infarction, unspecified; N17.9 Acute kidney failure, unspecified; E87.0 Hyperosmolality and hypernatremia; R47.1 Dysarthria and anarthria; R13.10 Dysphagia, unspecified; I25.10 Atherosclerotic heart disease of native coronary artery without angina pectoris; R29.810 Facial weakness; F01.50 Vascular dementia, unspecified severity, without behavioral disturbance, psychotic disturbance, mood disturbance, and anxiety; F43.23 Adjustment disorder with mixed anxiety and depressed mood; I50.9 Heart failure, unspecified; I11.0 Hypertensive heart disease with heart failure; E78.5 Hyperlipidemia, unspecified; E11.42 Type 2 diabetes mellitus with diabetic polyneuropathy; E11.51 Type 2 diabetes mellitus with diabetic peripheral angiopathy without gangrene; R47.81 Slurred speech; J44.9 Chronic obstructive pulmonary disease, unspecified; E86.0 Dehydration; Z95.5 Presence of coronary angioplasty implant and graft; I25.2 Old myocardial infarction; Z86.73 Personal history of transient ischemic attack (TIA), and cerebral infarction without residual deficits; Z82.49 Family history of ischemic heart disease and other diseases of the circulatory system; Z80.8 Family history of malignant neoplasm of other organs or systems; Z79.84 Long term (current) use of oral hypoglycemic drugs; Z87.442 Personal history of urinary calculi; Z71.6 Tobacco abuse counseling; D72.829 Elevated white blood cell count, unspecified
CPT/HCPCS: 10112

== ENCOUNTER 2019-04-01 22:34 | Emergency (ER) | payer OTHER ==
[~2019-04-01] VITALS: Ht 177.8 cm; Wt 102.1 kg
[~2019-04-01 22:34] MED LIST changes: +NICOTINE1 EAC2 TRANSDERM; +PROBIOTIC1 EAC1 PO
[2019-04-01] MEDS ORDERED: KEFLEX500 M1 PO (23:32)
[2019-04-01] MEDS ORDERED: BACTRIM DS TAB1 EACH PO (23:32)
[2019-04-01 23:58] VITALS: BP 191/109
== END 2019-04-01 23:59 | disposition home or self-care (01) ==
LOC: ER 22:34
DX: L02.212 Cutaneous abscess of back [any part, except buttock and flank] (principal); L72.3 Sebaceous cyst; F17.210 Nicotine dependence, cigarettes, uncomplicated; I11.0 Hypertensive heart disease with heart failure; I50.9 Heart failure, unspecified; E11.9 Type 2 diabetes mellitus without complications; I25.10 Atherosclerotic heart disease of native coronary artery without angina pectoris; E78.5 Hyperlipidemia, unspecified; Z86.73 Personal history of transient ischemic attack (TIA), and cerebral infarction without residual deficits; Z79.82 Long term (current) use of aspirin; Z79.899 Other long term (current) drug therapy; Z95.5 Presence of coronary angioplasty implant and graft; Z87.442 Personal history of urinary calculi

== ENCOUNTER 2019-04-04 16:58 | Emergency (ER) | payer OTHER ==
[~2019-04-04] VITALS: Ht 177.8 cm; Wt 56.7 kg
[~2019-04-04 16:58] MED LIST changes: +KEFLEX500 M1 PO
[2019-04-04 16:59] VITALS: BP 165/87
== END 2019-04-04 18:10 | disposition home or self-care (01) ==
LOC: ER 16:58
DX: Z48.01 Encounter for change or removal of surgical wound dressing (principal); I11.0 Hypertensive heart disease with heart failure; I50.9 Heart failure, unspecified; I25.10 Atherosclerotic heart disease of native coronary artery without angina pectoris; E11.9 Type 2 diabetes mellitus without complications; E78.5 Hyperlipidemia, unspecified; F17.210 Nicotine dependence, cigarettes, uncomplicated; Z95.5 Presence of coronary angioplasty implant and graft; Z86.73 Personal history of transient ischemic attack (TIA), and cerebral infarction without residual deficits; Z87.442 Personal history of urinary calculi

== ENCOUNTER 2019-09-30 16:17 | Inpatient (IN) | payer OTHER ==
[~2019-09-30] VITALS: Ht 177.8 cm; Wt 98.1 kg
[2019-09-30 16:20] VITALS: BP 162/105
[2019-09-30 16:56] LABS: ABSOLUTE NEUTROPHILS 5.1 thou/uL (1.4-8.2); BASOPHILS 0.7 % (0.0-2.0); EOSINOPHILS 1.9 % (0.0-3.0); HEMATOCRIT 41.6 % (42.0-52.0); HEMOGLOBIN 13.9 gm/dL (14.0-18.0); LYMPHOCYTES 27.4 % (24.0-44.0); MCH 31.3 pg (26.0-34.0); MCHC 33.4 g/dL (28.0-37.0); MCV 93.8 fL (80.0-100.0); MONOCYTES 7.3 % (1.0-8.0); PLATELET COUNT 313 thou/uL (150-400); POLYS 62.7 % (36.0-66.0); RBC 4.43 mil/uL (4.50-6.00); RDW 12.4 % (10.5-14.5); WBC 8.1 thou/uL (4.0-11.0)
[2019-09-30 17:01] LABS: CALCIUM 8.7 mg/dL (8.5-10.1); CREATININE 1.2 mg/dL (0.7-1.3); MAGNESIUM 1.9 mg/dL (1.8-2.4); POTASSIUM 3.8 mmol/L (3.5-5.1)
[2019-09-30 17:33] LABS: URINE BILIRUBIN NEGATIVE (Negative); URINE BLOOD NEGATIVE (Negative); URINE CLARITY CLEAR; URINE COLOR YELLOW; URINE GLUCOSE-RANDOM* 1+ (Negative); URINE KETONES NEGATIVE (Negative); URINE LEUKOCYTES-REFLEX NEGATIVE (Negative); URINE NITRITE-REFLEX NEGATIVE (Negative); URINE PROTEIN (DIPSTICK) 1+ (Negative); URINE SPECIFIC GRAVITY >= 1.030 (1.005-1.035)
[2019-09-30 17:42] LABS: BACTERIA-REFLEX 1-9 Few /HPF (None Seen); CASTS None Seen /LPF (None Seen); CRYSTALS None Seen /LPF (None Seen); SQUAMOUS None Seen /LPF (0-3); URINE RBC None Seen /HPF (0-2); URINE WBC-REFLEX 0-5 Rare /HPF (0-5)
[2019-09-30 18:14] LABS: ALBUMIN 3.5 g/dL (3.4-5.0); TOTAL PROTEIN 6.7 g/dL (6.4-8.2)
[2019-09-30 18:16] LABS: TSH 0.724 uIU/mL (0.358-3.740)
[2019-09-30 18:58] VITALS: BP 177/96
[2019-09-30 20:11] VITALS: BP 163/106
--- NOTE | 2019-09-30 22:09 | NUR ---
PATIENT IS A NEW ADMISSION TO THE UNIT THIS SHIFT. HE ARRIVED VIA CART FROM THE ER AND WAS ABLE TO AMBULATE INTO BED WITH ASSISTANCE INCIDENT FREE. PATIENT IS FULLY ALERT AND ORIENTED AND ABLE TO PARTICIPATE FULLY IN ADMISSION. LEFT SIDED WEAKNESS NOTED WITH PATIENTS NIH SCORED AT 4. VITAL SIGNS MOSTLY STABLE WITH PATIENT HYPERTENSIVE WHICH THE PROVIDER IS AWARE OF. NURSE TO COMPLETE ADMISSION AND INITIATE PLAN OF CARE.
[2019-10-01 00:01] VITALS: BP 172/91
[2019-10-01] MEDS ORDERED: TOPROL XL100 MG PO (02:20)
[2019-10-01 03:22] VITALS: BP 171/86
[2019-10-01 04:51] LABS: HEMATOCRIT 40.5 % (42.0-52.0); HEMOGLOBIN 13.4 gm/dL (14.0-18.0); MCH 31.2 pg (26.0-34.0); MCV 94.5 fL (80.0-100.0); RBC 4.28 mil/uL (4.50-6.00); RDW 12.7 % (10.5-14.5); WBC 7.8 thou/uL (4.0-11.0)
--- NOTE | 2019-10-01 05:20 | NUR ---
VITAL SIGNS STABLE WITH PATIENT HAVING NO COMPLAINTS OF PAIN OR NAUSEA. NIH STILL SCORED AT FOUR DUE TO LEFT SIDED WEAKNESS AND SLURRED SPEECH WHICH MAY BE CLOSE TO PATIENTS BASELINE. BREATHING STABLE EVIDENCED BY ASSESSMENT AND SPOT OXYGENATION CHECKS. PATIENT UP WITH ASSISTANCE INCIDENT FREE. CONTINUE PLAN OF CARE.
[2019-10-01 05:23] LABS: ANION GAP 7 mmol/L (7-16); BUN 15 mg/dL (7-18); CALCIUM 8.1 mg/dL (8.5-10.1); CHLORIDE 106 mmol/L (98-107); CHOLESTEROL 99 mg/dL (<200); CO2 28 mmol/L (21-32); CREATININE 1.2 mg/dL (0.7-1.3); GLUCOSE 154 mg/dL (74-106); HDL CHOLESTEROL 44 mg/dL (>40); LDL CHOLESTEROL 36 mg/dL (<100); MAGNESIUM 1.8 mg/dL (1.8-2.4); POTASSIUM 3.5 mmol/L (3.5-5.1); SODIUM 141 mmol/L (136-145); TC:HDL 2.3 Ratio (Not establshd); TRIGLYCERIDE 99 mg/dL (<150); VLDL 20 mg/dL (<40)
[2019-10-01 05:27] LABS: SERUM ASSESSMENT Clear
[2019-10-01 07:23] VITALS: BP 154/103
--- NOTE | 2019-10-01 08:58 | EKG ---
[facility] [place] [address] ELECTROCARDIOGRAM REPORT Name: ARACELI LARSEN Room #: 211-P ADM IN M.R.#: [id number] Admission: 09/30/19 Attend Phys: Feroz Bowden MD Discharge: Date of : 57 Report #: [id number] THIS REPORT FOR: cc: Ally Staples,Scott Browning MD [facility] ~ THIS REPORT FOR: //name// 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 : 1955 Requested By: Balaji Benoit Order Number: [id number] MD: Scott Nicholson Measurements Intervals [place] Rate: 70 P: 41 SD: 159 QRS: 9 QRSD: 112 T: 180 QT: 405 QTc: 437 Interpretive Statements Sinus rhythm Probable left atrial enlargement Poor R wave progression Inferior infarct, age indeterminate T wave abnormality, consider ischemia Compared to ECG 10/07/2018 11:08:30 No significant change was found Electronically Signed On 10-01-2019 8:56:27 CDT by Scott Nicholson [email or web address] <ELECTRONICALLY SIGNED> By: Scott Nicholson MD, FAC 10/01/19 0856 1730 1730 Scott Nicholson MD, FAC /EPI
[2019-10-01 11:30] VITALS: BP 156/95
[2019-10-01 17:50] VITALS: BP 154/96
--- NOTE | 2019-10-01 18:38 | NUR ---
RECEIVED PT'S CARE AROUND 0730; PT. ON BED; ALERT; DURING AM ASSESSMENT AOX4; NO C/O PAIN; AM MEDICATIONS GIVEN; ABLE TO SWALLOW OK; NOT COUGHING; NEURO ASSESSMENT PERFORMED; CHECK CHARTING; BP MEDICATION GIVEN AFTER MRI; PHYSICIAN NOTIFIED; NO NEW ORDERS; DURING THE AFTERNOON SAT ON CHAIR; NO CHANGE ON NEURO THROUGH THE DAY; SR ON THE MONITOR; ASSESSMENT CHARGED; FOLLOWING POC; WILL PASS ON REPORT;
--- NOTE | 2019-10-01 18:46 | NUR ---
Chart reviewed. Pt is known to cm from previous admission last year and [facility] acute rehab stay d/t CVA. Stroke workup in progress. PT/OT/5N evals pending. Pt lives with his and has a rwalker. He is aphasic. He had [facility] Leung in the past for services. Will f/u with pt and with care team recommendations.
[2019-10-01 20:13] VITALS: BP 153/94
[2019-10-02 01:08] LABS: GLYCOHEMOGLOBIN (HGB A1C) 6.2 % (4.8-5.6)
[2019-10-02 03:50] VITALS: BP 150/96
[2019-10-02 04:10] LABS: HEMOGLOBIN 13.4 gm/dL (14.0-18.0); MCH 31.3 pg (26.0-34.0); MCHC 33.4 g/dL (28.0-37.0); MCV 93.5 fL (80.0-100.0); RBC 4.28 mil/uL (4.50-6.00); RDW 12.5 % (10.5-14.5); WBC 8.3 thou/uL (4.0-11.0)
[2019-10-02 04:15] LABS: CALCIUM 8.5 mg/dL (8.5-10.1); CREATININE 1.1 mg/dL (0.7-1.3); MAGNESIUM 1.9 mg/dL (1.8-2.4); POTASSIUM 3.7 mmol/L (3.5-5.1)
--- NOTE | 2019-10-02 04:53 | NUR ---
PT ALERT AND ORIENTED. VITAL SIGNS STABLE. NO C/O OF CHEST PAIN, NUMBNESS, SOB, OR NAUSEA REPORTED. PT REPORTS CURRENT STROKE SIGNS AND SYMPTOMS ARE AT BASELINE FROM HIS PREVIOUS STROKE. DENIES PAIN. VOIDING PER THE URINAL. SCORED 3 ON NIH ASSESSMENT. NO NEW CONCERNS AT THIS TIME. WILL CONTINUE TO FOLLOW POC.
[2019-10-02 08:00] VITALS: BP 173/93
--- NOTE | 2019-10-02 10:41 | 2DMMODE ---
[facility] [place] [address] 2 D/M-MODE ECHOCARDIOGRAM Name: ARACELI LARSEN Room #: 211-P ADM IN M.R.#: [id number] Admission: 09/30/19 Attend Phys: Feroz Bowden MD Discharge: Date of : 57 Report #: [id number] THIS REPORT FOR: cc: Ally Staples,Ally Pang,Scott Rosario MD LOCATED WITHIN [facility] ~ APPROVED REPORT Study performed: 10/02/2019 09:32:49 EXAM: Comprehensive 2D, Doppler, and color-flow Echocardiogram Patient Location: Bedside Room #: 211 Status: routine BSA: 2.16 HR: 70 bpm BP: 153/103 mmHg Rhythm: NSR Other Information Study Quality: Good Indications Weakness. Rule out CVA. Hx: ISCM, CAD, stent, HTN, HLP, CVA, tobacco abuse. Echo Enhancing Agent Indication: Rule out Shunt Agent(s) / Amount(s) Used: Agitated Saline 7 cc 2D Dimensions RVDd: 40.69 mm IVSd: 13.00 (7-11mm) LVOT Diam: 21.52 (18-24mm) LVDd: 54.29 mm PWd: 11.37 (7-11mm) Ascending Ao: 41.11 (22-36mm) LVDs: 43.59 (25-40mm) Aortic Root: 37.72 mm Volumes Left Atrial Volume (Systole) Single Plane 4CH: 71.60 mL Single Plane 2CH: 81.73 mL LA ESV Index: 39.00 mL/m2 Aortic Valve [facility] [address] [place] [address] 2 D/M-MODE ECHOCARDIOGRAM Name: ARACELI LARSEN Room #: 211-P [facility] IN [facility].#: [id number] Admission: 09/30/19 Attend Phys: Feroz Bowden, Discharge: Date of : 57 Report #: [id number] AoV Peak Mendoza.: 0.93 m/s AO Peak Gr.: 3.50 mmHg LVOT Max P.27 mmHg LVOT Max V: 0.75 m/s ELVIS Vmax: 2.93 cm2 Mitral Valve E/A Ratio: 4.5 MV Decel. Time: 143.02 ms MV E Max Mendoza.: 1.12 m/s MV A Mendoza.: 0.25 m/s MV PHT: 41.48 ms IVRT: 76.12 ms Pulmonary Valve PV Peak Mendoza.: 0.77 m/s PV Peak Gr.: 2.35 mmHg Pulmonary Vein P Vein S: 0.51 m/s P Vein D: 0.85 m/s P Vein S/D Ratio: 0.60 Tricuspid Valve TR Peak Mendoza.: 3.70 m/s RAP Estimate: 5.00 mmHg TR Peak Gr.: 54.00 mmHg PA Pressure: 59.00 mmHg Left Ventricle The left ventricle is normal size. Mild basal septal hypertrophy is present. Left ventricular systolic function is mild to moderately decreased. LVEF is 45%. Basal inferior and inferoseptal hypokinesis. Severe diastolic dysfunction Right Ventricle The right ventricle is normal size. The right ventricular systolic function is normal. Atria The left atrium size is normal. No shunting with contrast bubble injection. The right atrium size is normal. Aortic Valve The aortic valve is mildly sclerotic. Mild aortic regurgitation. There is no aortic valvular stenosis. Mitral Valve The mitral valve is normal in structure. Mild to moderate mitral [facility] [address] [place] [address] 2 D/M-MODE ECHOCARDIOGRAM Name: ARACELI LARSEN Room #: 211-P [facility] IN .R.#: [id number] Admission: 09/30/19 Attend Phys: Feroz Bowden, Discharge: Date of : 57 Report #: [id number] regurgitation. No evidence of mitral valve stenosis. Tricuspid Valve The tricuspid valve is normal in structure. Mild to moderate tricuspid regurgitation. Estimated PAP is 60mmHg. Pulmonic Valve The pulmonary valve is normal in structure. Trace pulmonic regurgitation. Great Vessels Aortic root is borderline dilated. Ascending aorta is dilated (4.1cm) IVC is normal in size and collapses >50% with inspiration. Pericardium There is no pericardial effusion. <Conclusion> Left ventricular systolic function is mild to moderately decreased. LVEF is 45%. Basal inferior and inferoseptal hypokinesis. Severe diastolic dysfunction No shunting with contrast bubble injection. The aortic valve is mildly sclerotic. Mild aortic regurgitation, no stenosis. The mitral valve is normal in structure. Mild to moderate mitral regurgitation. Mild to moderate tricuspid regurgitation. Estimated pulmonary artery pressure of 60mmHg. Ascending aorta is dilated (4.1cm) There is no pericardial effusion. <ELECTRONICALLY SIGNED> By: Scott Nicholson MD, LOCATED [facility] 10/02/19 1039 1039 1039 Scott Nicholson MD, FACC /INF
[2019-10-02] MEDS ORDERED: LISINOPRIL10 MG PO (12:10)
[2019-10-02 12:18] VITALS: BP 157/85
[2019-10-02 13:21] VITALS: BP 157/85
--- NOTE | 2019-10-02 13:22 | NUR ---
Case discussed with the care team. Pt dcing home today with his . Pt cleared by therapy to dc and resume his outpt therapy program. Inpt rehab referral not needed. No new cva noted. Pt has needed dme in place at home and wants to continue his outpt therapy program. No cm interventions indicated.
--- NOTE | 2019-10-02 14:04 | NUR ---
RECEIVED PT'S CARE AROUND 0710; PT. AOX4; ON BED; DURING AM ASSESSMENT NO C/O PAIN; AM MEDICATIONS GIVEN; GONE FOR MRI; ELEVATED BP; PHYSICIAN NOTIFIED DURING ROUNDING; SR ON THE MONITOR; WORKED WITH PT; EDUCATED ABOUT D/C PROCESS; ST. UNDERSTANDING; ASSESSMENT CHARGED; FOLLOWED POC; WORKING ON D/C ORDERS;
[2019-10-02 14:24] VITALS: BP 157/85
--- NOTE | 2019-10-05 18:41 | HC ---
[facility] [place] [address] CONSULTATION Name: ARACELI LARSEN Room #: 211-P [facility] IN M.R.#: [id number] Admission: 09/30/19 Attend Phys: Feroz Bowden MD Discharge: 10/02/19 Date of : 57 Report #: [id number] THIS REPORT FOR: cc: Ally Staples,Ally Mccall,Paco Greenberg MD ~ CC: Ally Cruz DATE OF SERVICE: 09/30/2019 HISTORY OF PRESENT ILLNESS: This is a 63-year-old male patient who was briefly seen last night and a consultation will be completed this morning. This patient is a poor historian. He mainly wants to go home. He had a stroke on the left side in the past and he thinks it became worse. It is a little worse than usual, but difficult to tell because I do not know the baseline. 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 He has not had an MRI yet. He also has multiple other histories like CVA, coronary artery disease, diabetes, hypertension, history of nicotine use. PHYSICAL EXAMINATION: His examination was that he was able to move the left side, but he is weak there. I do not know what his baseline is. I do not know what the etiology of his strokes were in the past and he was not able to tell me that either. PLAN: We will do the consultation in this patient after the MRI is done to see how much is new and how much is old, and see this patient back later on today. <ELECTRONICALLY SIGNED> By: Paco Cruz MD 10/05/19 1841 0538 0605 Paco Cruz MD /nt
== END 2019-10-02 14:55 | disposition home or self-care (01) | DRG 948 ==
LOC: ER 16:17 → EROBS 17:39 → 2N 17:39
PROVIDERS: Emergency Medicine; ADMIT Internal Medicine
DX: R53.1 Weakness (principal); I69.354 Hemiplegia and hemiparesis following cerebral infarction affecting left non-dominant side; E11.9 Type 2 diabetes mellitus without complications; I50.9 Heart failure, unspecified; I25.10 Atherosclerotic heart disease of native coronary artery without angina pectoris; E78.5 Hyperlipidemia, unspecified; F17.210 Nicotine dependence, cigarettes, uncomplicated; Z79.82 Long term (current) use of aspirin; I11.0 Hypertensive heart disease with heart failure; Z95.5 Presence of coronary angioplasty implant and graft; Z87.442 Personal history of urinary calculi; Z79.899 Other long term (current) drug therapy
CPT/HCPCS: 10081

== ENCOUNTER → 2020-04-08 | Outpatient (CLI) | payer OTHER ==
[~2020-04-08] MED LIST changes: +TOPROL XL100 MG PO
== END ==
LOC: SJCVCIMAG 08:14
PROVIDERS: ATTEND Internal Medicine Cardiovascular Disease
DX: I25.10 Atherosclerotic heart disease of native coronary artery without angina pectoris (principal); R00.0 Tachycardia, unspecified; I49.1 Atrial premature depolarization; E78.00 Pure hypercholesterolemia, unspecified; I63.9 Cerebral infarction, unspecified; I11.0 Hypertensive heart disease with heart failure; I50.9 Heart failure, unspecified; E11.9 Type 2 diabetes mellitus without complications; I25.2 Old myocardial infarction; Z79.82 Long term (current) use of aspirin; Z79.899 Other long term (current) drug therapy; Z87.891 Personal history of nicotine dependence

== ENCOUNTER 2020-08-13 18:39 | Inpatient (IN) | payer OTHER ==
[~2020-08-13] VITALS: Ht 177.8 cm; Wt 94.8 kg
--- NOTE | ~2020-08-13 | HC ---
[facility] [place] [address] CONSULTATION Name: ARACELI LARSEN Room #: 206- ADM IN M.R.#: [id number] Admission: 08/13/20 Attend Phys: Juan Vital MD Discharge: Date of : 57 Report #: [id number] THIS REPORT FOR: cc: Ally Staples,Ally Hinds,Amarilys Aldana DO ~ NEUROLOGY CONSULT HISTORY OF PRESENT ILLNESS: The patient is a 64-year-old male with prior history of stroke. I spoke to his and she states that the patient had used his walker to go to the bathroom, but when he came back from the bathroom, the left leg seemed weaker. He tried to lift the leg to walk over a shoe, but could not do it. The patient also states that he feels weaker on the left side, the arm and the leg. He attributes the weakness in the left upper extremity, which is in the shoulder area to a COVID vaccine that he got 2 days ago. He denies pain. He states he does not have pain anywhere. The patient has a prior history of stroke with left hemiparesis. He is on a combination of aspirin and clopidogrel. PAST MEDICAL HISTORY: Coronary artery disease, stroke, diabetes mellitus, diabetic peripheral neuropathy, cigarette use, congestive heart failure, kidney stones. PAST SURGICAL HISTORY: Unremarkable. MEDICATIONS: In the hospital include aspirin 81 mg daily, atorvastatin 80 mg daily, Coreg 12.5 mg b.i.d., Plavix 75 mg daily, Lovenox 40 mg at bedtime, glipizide 10 mg in the morning, sliding scale insulin, probiotic daily, lisinopril 20 mg daily, nicotine patch 7 mg daily. ALLERGIES: None. PHYSICAL EXAMINATION: VITAL SIGNS: Temperature 36.7, pulse rate 81, respiratory rate 20, blood pressure 146/98, bedside pulse oximetry 94%. NEUROLOGIC: Cranial nerves 2-12. The patient does have dysarthria, but I was able to understand him. He has a mild left facial droop. Motor exam demonstrates a left hemiparesis. For example, I asked him to lift his arms above his head. He was able to do this on the right, but had difficulty getting his arm parallel to the bed with the left upper extremity. I asked him to lift his legs off the bed. He was able to get the right leg off the bed just a few inches and the left leg he was able to pull towards him, but could not lift it off the bed. Reflexes are absent throughout. The right plantar response appeared ____ flexor. Coordination demonstrated intact [id number], although he did have difficulty doing this with the left upper extremity. Gait cannot be [address] [address] CONSULTATION Name: ARACELI LARSEN Room #: 206-P ADM IN M.R.#: [id number] Admission: 08/13/20 Attend Phys: Juan Vital MD Discharge: Date of : 57 Report #: [id number] tested for safety reasons. LABORATORY WORK: Hematology: White blood cell count 8.7, hemoglobin 12.8, hematocrit 39.5, MCV 91.2, platelet count 303,000. INR 0.96. Urinalysis, trace blood, 3+ glucose. Chemistry: Sodium 142, potassium 3.9, chloride 109, carbon dioxide 23, BUN 17, creatinine 1.1, GFR 82, glucose 144. Lactic acid 1.3, calcium 8.5. Liver functions normal with the exception of alkaline phosphatase which is 235. Drug screen negative. IMAGING STUDIES: CT scan of the head demonstrates stable periventricular white matter disease and old lacunar infarct. Since a prior CT head, there has been development of a left frontal cortical infarct. CT angiogram demonstrated no evidence of carotid stenosis or large branch occlusion or aneurysm of the [place] of [place], atherosclerosis of the cavernous portion of the bilateral internal carotid arteries, right greater than left was noted. IMPRESSION: This patient has increasing weakness of the left arm and leg. The weakness in the arm he is attributing to his COVID injection; however, he tells me he has no pain. Therefore, I am also going to order in addition to the MRI of the head, an MRI of the cervical spine without contrast. This can also be done on Saturday. The neurologist elementary education teacher will be following the patient as of Saturday morning. Physical therapy and occupational therapy have been ordered. At this point, I would continue aspirin and Plavix, although he may not need to continue dual platelet therapy. I did speak to the patient's and she understands that imaging studies will be done tomorrow. I thank you for your kind referral of the patient. By: 1054 1227 Amarilys Stokes DO /nt
[2020-08-13 18:43] VITALS: BP 151/92
[2020-08-13 19:29] LABS: ABSOLUTE NEUTROPHILS 8.7 thou/uL (1.4-8.2); BASOPHILS 0.6 % (0.0-2.0); EOSINOPHILS 0.9 % (0.0-3.0); HEMATOCRIT 41.3 % (42.0-52.0); HEMOGLOBIN 13.3 gm/dL (14.0-18.0); LYMPHOCYTES 15.7 % (24.0-44.0); MCH 29.4 pg (26.0-34.0); MCHC 32.1 g/dL (28.0-37.0); MCV 91.5 fL (80.0-100.0); MONOCYTES 5.9 % (1.0-8.0); PLATELET COUNT 352 thou/uL (150-400); POLYS 76.9 % (36.0-66.0); RBC 4.52 mil/uL (4.50-6.00); RDW 13.9 % (10.5-14.5); WBC 11.4 thou/uL (4.0-11.0)
[2020-08-13 19:37] LABS: ANION GAP 10 mmol/L (7-16); BUN 20 mg/dL (7-18); CHLORIDE 106 mmol/L (98-107); CO2 26 mmol/L (21-32); CREATININE 1.4 mg/dL (0.7-1.3); GLUCOSE 216 mg/dL (74-106); POTASSIUM 3.5 mmol/L (3.5-5.1); SODIUM 142 mmol/L (136-145)
[2020-08-13 19:47] LABS: ALBUMIN 3.5 g/dL (3.4-5.0); SGOT 16 U/L (15-37); SGPT 27 U/L (16-63); TOTAL BILIRUBIN 0.5 mg/dL (0.2-1.0); TOTAL PROTEIN 6.9 g/dL (6.4-8.2); TROPONIN-I <0.06 ng/mL (<0.06)
[2020-08-13 19:48] LABS: URINE BILIRUBIN NEGATIVE (Negative); URINE BLOOD TRACE (Negative); URINE CLARITY CLEAR; URINE COLOR YELLOW; URINE GLUCOSE-RANDOM* 3+ (Negative); URINE KETONES NEGATIVE (Negative); URINE LEUKOCYTES-REFLEX NEGATIVE (Negative); URINE NITRITE-REFLEX NEGATIVE (Negative); URINE PROTEIN (DIPSTICK) NEGATIVE (Negative); URINE UROBILINOGEN 0.2 E.U./dl (0.2-1.0)
[2020-08-13 20:36] LABS: APTT 25.9 Seconds (24.5-32.8); INR 0.96; PROTIME 10.5 Seconds (9.3-11.4)
[2020-08-13 22:41] VITALS: BP 157/86
[2020-08-13 23:20] VITALS: BP 159/100
--- NOTE | 2020-08-14 01:27 | NUR ---
PT WAS ADMITTED FROM ER FOR LEFT SIDED WEAKNESS, PT IS AWAKE, ALERT AND ORIENTEDX4, ADMISION HX, EDUCATION AND ASSESSMENT COMPLETED, DENIES PAIN OR SOB, NIH COMPLETED, PT WAS ABLE TO EAT, NO SWALLOWING PROBLEMS NOTED, MED REC COMPLETED, NO NEEDS AT THIS TIME WILL CONTINUE TO MONITOR, PLAN FOR MRI TODAY
[2020-08-14 04:52] VITALS: BP 173/103
[2020-08-14 05:22] LABS: HEMATOCRIT 39.5 % (42.0-52.0); HEMOGLOBIN 12.8 gm/dL (14.0-18.0); MCH 29.6 pg (26.0-34.0); MCHC 32.5 g/dL (28.0-37.0); MCV 91.2 fL (80.0-100.0); RBC 4.33 mil/uL (4.50-6.00); RDW 13.5 % (10.5-14.5); WBC 8.7 thou/uL (4.0-11.0)
[2020-08-14 05:31] LABS: CALCIUM 8.5 mg/dL (8.5-10.1); CREATININE 1.1 mg/dL (0.7-1.3); POTASSIUM 3.9 mmol/L (3.5-5.1)
[2020-08-14 07:25] VITALS: BP 146/98
--- NOTE | 2020-08-14 11:05 | EKG ---
[place] [address] [facility] [place] [address] ELECTROCARDIOGRAM REPORT Name: ARACELI LARSEN Room #: 206-P ADM IN M.R.#: [id number] Admission: 08/13/20 Attend Phys: Juan Vital MD Discharge: Date of : 57 Report #: [id number] [facility] ED Test Date: 2020-08-13 Test Time: 19:15:12 Pat Name: ARACELI LARSEN Department: Room: 206 Gender: M Bead Supervisor: mikel whittaker : 1955 Requested By: Brent Gotti Order Number: [id number] MD: Errol Mann Measurements Intervals [place] Rate: 92 P: 42 [place]: 144 QRS: -4 QRSD: 104 T: 173 QT: 372 QTc: 461 Interpretive Statements Sinus rhythm Inferior infarct, old Borderline ST elevation, anterior leads Lateral leads are also involved Baseline wander in lead(s) V3 Compared to ECG 09/30/2019 17:30:55 Electronically Signed On 08-14-2020 11:05:36 CDT by Errol Mann [email or web address] <ELECTRONICALLY SIGNED> By: Errol Mann MD 08/14/20 1105 14 14 Errol Mann MD /EPI
[2020-08-14 11:35] VITALS: BP 132/88
[2020-08-14 15:20] VITALS: BP 154/74
--- NOTE | 2020-08-14 17:49 | NUR ---
RECEIVED PT'S CARE AROUND 0735; PT. ON BED; ALERT; SR ON THE MONITOR; DURING AM ASSESSMENT PT. AOX4; AM MEDICATIONS GIVEN; NIH ASSESSED; CHECK CHARTING; L. SIDE WEAKNESS NOTICED; COUGH AFTER GIVEN PILLS; STRAWS REMOVED; EDUCATED ABOUT DRINKING FLUIDS WITHOUT STRAW; ST. UNDERSTANDING; EDUCATED ABOUT FALL PRECAUTIONS; ST. UNDERSTANDING; REQUESTED NICOTINE PATCH; PHYSICIAN NOTIFIED; ORDERS RECEIVED; SR ON THE MONITOR; ABLE TO HAVE A BM; C/O CONSTIPATION; PRN MEDICATION WILL BE GIVEN; MRI ROUTINE ORDERED; PER DR. JOSY UP TO PERFORM IT ON 08/15/20; PT. WORKED WITH PT. DURING THE AFTERNOON; ASSESSMENT CHARGED; FOLLOWING POC; WILL PASS ON REPORT;
[2020-08-14 20:15] VITALS: BP 147/93
[2020-08-15] VITALS (9 sets, daily range): BP systolic 123–168; BP diastolic 83–110
--- NOTE | 2020-08-15 06:11 | NUR ---
REFUSED INSULIN AT BEDTIME.REPOSITION Q2H.NIH ASSESSED.MONITOR SHOWS SR.POC CONTINUED.
[2020-08-15] MEDS ORDERED: NICOTINE1 EAC2 TRANSDERM (10:59)
[2020-08-15] MEDS ORDERED: CARVEDILOL25 MG PO (11:00)
[2020-08-15] MEDS ORDERED: ASPIRIN EC325 M1 PO (11:00)
[2020-08-15] MEDS ORDERED: CLONIDINE HCL0.1 MG PO (11:04)
--- NOTE | 2020-08-15 11:52 | NUR ---
Met with patient who admits with CVA. Patient with prev CVA. Patient reports he resides home with , dtr and son. All needs on one level with one step to enter home. Patient reports at work but son who is 20 at home and can assist if needed. Patient accepted to [facility] and agreeable to transfer. [facility] liason plans to call . Rquested COVID.
--- NOTE | 2020-08-15 18:19 | NUR ---
PT CARE ASSUMED AT 0700. ASSESSMENTS CHARTED. MEDICATIONS CHARTED. RAC IV. SINUS RHYTHM. EF 45%. ACHS. DISCHARGE ORDERS WRITTEN. ADMIT ORDERS TO REHAB WRITTEN. AWAITING COVID RESULTS PRIOR TO TRANSFER. MRI HEAD/ C-SPINE CANCELLED DUE TO MRI DOWN.
--- NOTE | 2020-08-15 20:43 | NUR ---
SHOWERED TONIGHT.MEDS GIVEN.ABLE TO SWALLOW PILL WITH THIN WATER AND UPRIGHT POSITION WITHOUT STRAW. AND DAUGHTER WAS HERE.REPORT GIVEN TO REHAB NURSE. PATIENT IS GOING TO ROOM 515.COVID RESULT IS NEGATIVE.POC CONTINUED.
== END 2020-08-15 21:00 | DRG 64 ==
LOC: ER 18:39 → EROBS 21:58 → 2N 21:58
PROVIDERS: Emergency Medicine; Hospitalist; Nurse Practitioner Family; ADMIT Internal Medicine; ATTEND Internal Medicine
DX: I63.89 Other cerebral infarction (principal); N17.0 Acute kidney failure with tubular necrosis; G81.94 Hemiplegia, unspecified affecting left nondominant side; I50.9 Heart failure, unspecified; I11.0 Hypertensive heart disease with heart failure; E78.5 Hyperlipidemia, unspecified; I25.10 Atherosclerotic heart disease of native coronary artery without angina pectoris; E11.42 Type 2 diabetes mellitus with diabetic polyneuropathy; I08.3 Combined rheumatic disorders of mitral, aortic and tricuspid valves; F17.210 Nicotine dependence, cigarettes, uncomplicated; Z20.822 Contact with and (suspected) exposure to COVID-19; Z86.73 Personal history of transient ischemic attack (TIA), and cerebral infarction without residual deficits; Z79.84 Long term (current) use of oral hypoglycemic drugs; Z79.899 Other long term (current) drug therapy; Z79.01 Long term (current) use of anticoagulants; Z79.82 Long term (current) use of aspirin
CPT/HCPCS: 10081

== ENCOUNTER 2020-08-15 11:34 | Inpatient (IN) | payer OTHER ==
[~2020-08-15] VITALS: Ht 177.8 cm; Wt 95.2 kg
--- NOTE | ~2020-08-15 | HC ---
[facility] [place] [address] CONSULTATION Name: ARACELI LARSEN Room #: 515-P ADM IN M.R.#: [id number] Admission: 08/15/20 Attend Phys: Brent Pelayo MD Discharge: Date of : 57 Report #: [id number] THIS REPORT FOR: cc: Ally Staples,Ally Min,Lit Yao. PhD ~ DATE OF SERVICE: 08/21/2020 BEHAVIORAL STATUS EXAM AGE: 64. ATTENDING PHYSICIAN: Brent Pelayo MD CHUTE OPERATOR: Lit Benitez, PhD CLINICAL PRESENTATION: The patient is a 64-year-old male admitted to the rehabilitation unit at [facility] for a comprehensive inpatient rehabilitation program to improve functional mobility, activities of daily living and self-care and mental status secondary to deficits from cerebrovascular accident. His initial admission carried the diagnosis of a left frontal CVA. A CT scan revealed a new left frontal cortical infarction. His diagnostic assessment on admission to the rehab unit is acute CVA, left frontal region, late effect CVA with left hemiparesis, hypertension, hyperlipidemia, CHF, diabetes mellitus type 2, coronary artery disease, status post stent and tobacco abuse. A complete description of his medical condition and history can be found in his medical record. Neuropsychological consultation was requested to provide assistance in the assessment of cognitive and emotional status and to provide recommendations and services. Prior to this most recent admission, he was living with the assistance of his in his home. His was helping with dressing and also providing assistance in the management of medication, finances and nutrition. The patient has 3 children. There is no history of alcohol or marijuana abuse. TECHNIQUES UTILIZED: Clinical interview, review of medical records, staff consultation and behavioral observation, mini mental status exam 2 standard version and clock drawing. EXAMINATION FINDINGS: The patient was alert and cooperative with the assessment. He accurately described events surrounding his admission. The patient presents with a pretty severe dysarthria and it is difficult to understand his ____ expression. He does not report difficulty with sleep or appetite, memory, anxiety or depression. His primary complaint is speech problems. [facility] [address] [place] [address] CONSULTATION Name: ARACELI LARSEN Room #: 515-P [facility] IN M.R.#: [id number] Admission: 08/15/20 Attend Phys: Brent Pelayo MD Discharge: Date of : 57 Report #: [id number] Performance on the MMSE 2 brief version is in the mild range of impairment with a raw score of 13/16. He was 3/3 for initial registration, 4/5 for orientation to time, 5/[address] and 1/3 for immediate recall of 3 items after a brief time delay and distraction. His performance on the MMSE 2 standard version was 22/30, which is a T score 28, percentile rank of 1. The patient was 1/5 for serial 7's. His naming, repetition, comprehension, reading and writing were within normal limits. The patient had difficulty with copying a simple geometric design. Additionally, he was unable to accurately both draw the numbers within the clock and set the hands at a designated time. Upper extremity dexterity is impaired along with evidence of what appears to be an apraxia speech. DIAGNOSTIC IMPRESSION: Major vascular neurocognitive disorder, without behavior disorder -- extent to be determined, likely in the moderate range. RECOMMENDATIONS: The patient will require continued assistance in management of medication, finances and nutrition. Speech therapy may be of benefit to assist in overall use of compensatory techniques. His will need to continue to provide assistance in the management of medication and implementation of the recommendations. Thank you very much for allowing me to provide the consultation on this patient. By: 08 19 Lit Benitez, PhD /nt
[~2020-08-15 11:34] MED LIST changes: +ASPIRIN EC325 M1 PO; +CARVEDILOL25 MG PO; +CLONIDINE HCL0.1 MG PO
[2020-08-15 21:07] VITALS: BP 145/94
--- NOTE | 2020-08-16 04:05 | NUR ---
TO ROOM 515 AT 2100, PATIENT IS GOOD HISTORIAN WITH GOOD MEMORY AND NOTICEABLY SLURRED SPEECH. HAS LEFT LEG WEAKNESS WHICH SEEMS TO HIM TO WORSE LATELY. HIS LEFT LEG BRACE HAS LOST THE TOP BUCKLE, REPAIRING IT WOULD GO A LONG WAY IN HELPING HIM AMBULATE. USING URINAL. STATES THAT WHEN HE IS HOME HE USES WALKER AND TAKES A SHOWER EVERY DAY.
[2020-08-16 06:11] LABS: HEMATOCRIT 37.3 % (42.0-52.0); HEMOGLOBIN 12.3 gm/dL (14.0-18.0); MCH 29.8 pg (26.0-34.0); MCHC 32.8 g/dL (28.0-37.0); MCV 90.7 fL (80.0-100.0); RBC 4.12 mil/uL (4.50-6.00); RDW 13.8 % (10.5-14.5); WBC 8.2 thou/uL (4.0-11.0)
[2020-08-16 06:30] LABS: CALCIUM 8.3 mg/dL (8.5-10.1); CREATININE 1.2 mg/dL (0.7-1.3); POTASSIUM 3.9 mmol/L (3.5-5.1)
[2020-08-16 07:53] VITALS: BP 151/97
--- NOTE | 2020-08-16 11:28 | NUR ---
Nutrition: Pt admitted to rehab unit with acute CVA. Recieved consult stating "poor intake". Pt eating 50-100% of meals so far on Heart healthy diet and reports good appetite. Assisted pt with ordering lunch and instructed on changing preferences as desired. No significant weight changes. Does have hx DM and BG fairly well controlled with 2 recent outlier BG > 250. Will add carb controlled to diet order and monitor. Consider low nutrition risk.
[2020-08-16 11:43] LABS: FOLIC ACID 6.3 ng/mL (8.6-58.9)
--- NOTE | 2020-08-16 13:39 | NUR ---
team meeting, recommendation: diet mech soft chopped, no straws thin liquids. mod/sever memory/cog. assist with pills and bills. [facility] (pt ot, st, nursing), afo strap is broken and furniture stainer to fix. chart review, lives home with , daughter and son. main level for all needs. 1 step to enter the home. 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 son able to help if needed?
[2020-08-16 14:19] VITALS: BP 106/70
--- NOTE | 2020-08-16 17:39 | NUR ---
0700 ASSUMED CARE OF PATIENT, PATIENT IN BED AT THAT TIME. PATIENT CALM AND COOPERATIVE. DIFFICULTY UNDERSTANDING PATIENT AT TIMES. PATIENT WORRIED ABOUT MRI AND ASKS ABOUT WHEN MRI WILL BE DONE. VS IN AM BP-151/97 P-70, R-20, T-98.2, O2 SATS 98% ON RA. PATIENT USING URNAL TO VOID DARK YELLOW URINE NOTED.
[2020-08-16 19:45] VITALS: BP 136/81
[2020-08-16 23:06] LABS: GLYCOHEMOGLOBIN (HGB A1C) 6.6 % (4.8-5.6)
--- NOTE | 2020-08-17 03:01 | NUR ---
PATIENT APPRECIATES JUICE AND CRACKERS AFTER 3 UNITS INSULIN GIVEN FOR BLOOD SUGAR OF 163. PATIENT ANTICIPATES MRI THIS MORNING IF MACHINE IS WORKING AGAIN. PLEASANT. SLURRED SPEECH, DOES NOT GET UPSET IF ASKED TO REPEAT AND CLARIFY, ALSO TALKING ON PHONE WITH FAMILY. ASKED FOR AND STARTED NICODERM PATCH 7, IS INTERESTED IN QUITTING ENOUGH THAT HE SAYS HE WOULD LIKE TO TRY THE PATCH WHEN HE GOES HOME.
[2020-08-17 07:15] VITALS: BP 132/78
--- NOTE | 2020-08-17 11:36 | NUR ---
ASSUMED CARE AT 0700. PATIENT IS ALERT AND ORIENTED X4, BUT FORGETFUL. PATIENT HAS LEFT SIDED WEAKNESS AND SLURRED SPEECH. LUNGS ARE CLEAR AND DEMINISHED. ABD IS SOFT WITH BSX4. UP IN THE CHAIR FOR BREAKFAST. FALL AND SAFETY PROTOCOLS IN PLACE. DENIES PAIN. CONTINUES TO PROGRESS SLOWLY TOWARDS D/C GOALS. WILL CONTINUE TO MONITER.
--- NOTE | 2020-08-17 13:54 | NUR ---
FAXED REFERRAL TO [facility] SPOKE WITH KELVIN IN INTAKE THEY CAN ACCEPT AT [place] 08/25.
[2020-08-17 13:55] VITALS: BP 132/78
[2020-08-17 19:19] VITALS: BP 148/74
--- NOTE | 2020-08-18 00:52 | NUR ---
PT ASSESSMENT COMPLETED AND VSS. MEDS GIVEN ORDERED AND WELL TOLERATED. FALL PRECAUTIONS IN PLACE. VOIDING MODERATE AMOUNT OF DARK YELLOW URINE PER URINAL. ASST WITH REPOSITION FOR COMFORT. BG 146 THIS EVENING. PT DENIES NEEDS. SLEEPING WELL. WILL CONTINUE TO MONITOR FREQUENTLY.
[2020-08-18 08:00] VITALS: BP 152/89
--- NOTE | 2020-08-18 11:30 | NUR ---
ASSUMED CARE AT 0700. SLEPT FAIR. ALERT AND ORIENTATED X 3. DENIES ANY PAIN. TOLERATED HIS MEDS WITH H20. APPETITE GOOD, LAST BM 08/16. SPEECH SLURRED. HAS LEFT SIDED WEAKNESS AND MOD RIVER EXPEDITION GUIDE. UP WITH ASSIST WITH BRACE AND WALKER. ACCUCHECK DONE AND INSULIN GIVEN ORDERED. ORDERS FOR MRI, RADIOLOGY CALLED AND WILL HAVE DONE BY TOMORROW. PARTICIPATED WITH THERAPY. CONT TO MONITOR.
[2020-08-18 20:00] VITALS: BP 137/74
--- NOTE | 2020-08-19 00:06 | NUR ---
PT ASSESSMENT COMPLETED AND VSS. MEDS GIVEN ORDERED AND WELL TOLERATED. FALL PRECAUTIONS IN PLACE. PT DENIES PAIN/N/SOA. INSULIN GIVEN ORDERED WITH SNACK. VOIDING MODERATE AMOUNT PER URINAL. PT DENIES NEEDS. SLEEPING WELL. WILL CONTINUE TO MONITOR FREQUENTLY.
[2020-08-19 07:15] VITALS: BP 122/80
--- NOTE | 2020-08-19 11:00 | NUR ---
ASSUMED CARE AT 0700. SLEPT FAIRLY WELL. ALERT AND ORIENTATED X 3. DENIES ANY PAIN. L SIDED WEAKNESS, WEARS LEG BRACE WITH AMBULATION. UP WITH MOD ASSIST WITH WALKER. JUAN PABLO TORRES. HAD A BM TODAY. LUNG CLEAR. ABDOMEN SOFT. GOOD APPETITE. L SIDED WEAKNESS WITH MOD CHECK VIEWER STRENGTH. HAD A LUMBAR AND THORACIC MRI DONE TODAY. PARTICIPATING WITH THERAPY AND PROGRESSING SLOWLY TOWARDS GOAL.
[2020-08-19 19:31] VITALS: BP 146/85
--- NOTE | 2020-08-20 02:52 | NUR ---
PLEASANT AND HAVING EVENING SNACK AFTER NO INSULIN GIVEN FOR HS BLOOD SUGAR OF 108. DRINKING WATER NOW WITHOUT USING STRAW. NOTES THAT NOBODY HAS TALKED TO HIM ABOUT HIS MRI YET, HE WONDERS IF HE WILL HAVE TO HAVE ANYTHING DONE.
[2020-08-20 10:25] VITALS: BP 138/79
--- NOTE | 2020-08-20 11:15 | NUR ---
ASSUMED CARE AT 0700. PATIENT IS ALERT AND ORIENTED X4. PATIENT HAS LEFT SIDED WEAKNESS AND SLURRED SPEECH. PATIENT IS UP WITH AARON OF 1 WITH GAIT BELT AND WALKER. PATIENT ABD IS SOFT WITH BSX4. PATIENT STATES "I FEEL CONSTIPATED. " DR. HOLLAND NOTIFIED. PRN MEDS FOR CONSTIPATION ORDERED. FALL AND SAFETY PROTOCOLS IN PLACE. DENIES PAIN AT THIS TIME. CONTINUES TO PROGRESS SLOWLY TOWARDS D/C GOALS. WILL CONTINUE TO MONITER.
[2020-08-20 19:40] VITALS: BP 147/88
--- NOTE | 2020-08-20 23:48 | NUR ---
PT ALERT AND ORIENTED X 4. LEFT SIDED WEAKNESS. VOIDING PER URINAL. PT TOOK HS MEDS WITH WATER WITHOUT DIFFICULTY. BLOOD SUGAR 165 AT HS. INSULIN GIVEN ORDERED. SNACK GIVEN. PT DENIES PAIN OR DISCOMFORT. BED ALARM ON FOR SAFETY. PT APPEARS TO BE SLEEPING ON HOURLY ROUNDS.
[2020-08-21 08:38] VITALS: BP 137/97
--- NOTE | 2020-08-21 12:30 | NUR ---
ASSUMED CARE AT 0700. SLEPT FAIRLY GOOD. DENIES ANY PAIN. ALERT AND ORIENTATED X 3. SLURRED SPEECH. 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 UP WITH SBA WITH WALKER AND GAIT BELT. LUNG CLEAR, ON ROOM AIR, DENIES ANY SOA. APPETITE GOOD, DIURESING WELL, HAD A BM TODAY. ON INSULIN. TOLERATED MEDS WITH WATER WITHOUT ANY SIGN OF ASPIRATION.
[2020-08-21 19:37] VITALS: BP 142/88
--- NOTE | 2020-08-22 00:51 | NUR ---
PT ALERT AND ORIENTED X 4. LEFT SIDED WEAKNESS. BLOOD SUGAR 142 AT HS. NO INSULIN NEEDED. PT REFUSED COLACE AT HS. PT DENIES PAIN OR DISCOMFORT. BED ALARM ON FOR SAFETY. PT APPEARS TO BE SLEEPING ON HOURLY ROUNDS.
[2020-08-22 07:20] VITALS: BP 185/103
--- NOTE | 2020-08-22 09:17 | NUR ---
PT SITTING IN CHAIR WORKING WITH SPEECH THERAPY. PT SPEECH IS SLURRED AND HARD TO UNDERSTAND AT TIMES. PT DID TAKE MEDS WHOLE WITH WATER. PT TOLERATED WELL. PT HAS WEAKNESS TO LEFT SIDE.
--- NOTE | 2020-08-22 15:17 | NUR ---
ADM TYLENOL 325MG 2 TABS PO FOR PAIN TO LEFT ARM AND SHOULDER. PT LYING IN BED AND ELEVATED LOWER EXT DUE TO SWELLING TO LEFT LE.
--- NOTE | 2020-08-22 15:19 | NUR ---
ADM TYLENOL 325MG PO FOR PAIN TO LEFT ARM OF 6 ON 1-10 SCALE.
[2020-08-22 17:09] VITALS: BP 152/99
--- NOTE | 2020-08-22 17:40 | NUR ---
PT ACCUCHECK FOR DINNER IS 85. PT HAD REFUSED LUNCH INSULIN WITH SUGAR OF 155. PT FINISHED DINNER AND WANTED ICE CREAM.
[2020-08-22 19:23] VITALS: BP 140/87
--- NOTE | 2020-08-23 01:25 | NUR ---
ASSUMED PT CARE AT 1900.PT DENIED PAIN SO FAR.BG MONITORED,INSULIN GIVEN.HS SNACK PROVIDED PER PT'E REQUEST.PT'S AND DTR HERE TO VISIT,SPENT SOME TIME WITH HIM BEFORE THEY WENT HOME.URINAL AT BEDSIDE.PT ABLE TO MAKE HIS NEEDS KNOWN.CALL LIGHT WITHIN REACH.
[2020-08-23 07:15] VITALS: BP 160/97
--- NOTE | 2020-08-23 11:35 | NUR ---
Nutrition followup: pt continues to eat 50-100% of mels on Carb controlled, mechanical altered chopped diet. ST following for dysphagia. Possible 6# weight decline from admit. Follow trends. Pt refusing supplements and understands how to order meals. BG is controlled. Plan D/C soon. Low risk.
--- NOTE | 2020-08-23 12:06 | NUR ---
ASSUMED CARE AT 0700. SLEPT WELL. ALERT AND ORIENTATED X 3. DENIES ANY PAIN. ACCUCHECKS DONE AND INSULIN GIVEN SSI. APPETITE GOOD. REFUSED HIS SENNA TODAY, HAVING REGULAR BM. LUNGS CLEAR ON ROOM AIR. TOLERATES HIS MEDS WITH WATER. NO SIGNS OF DISTRESS OR ASPIRATION. PARTICIPATING WITH THERAPY AND PROGRESSING TOWARDS GOAL. PLAN FOR DC THIS WEEK. CONT TO MONITOR.
--- NOTE | 2020-08-23 12:53 | NUR ---
team meeting, recommendation: need assist with pills and bill, mod/sever memory and cog. diet mech soft with thin no starwls. [facility] st, nursing ), no dme
[2020-08-23 19:53] VITALS: BP 154/89
--- NOTE | 2020-08-24 01:15 | NUR ---
PT ALERT AND ORIENTED X 4. LEFT SIDED WEAKNESS. AMB TO BR WITH WALKER AND ASSIST X 1. PT DENIES PAIN OR DISCOMFORT. BED ALARM ON FOR SAFETY. PT APPEARS TO BE SLEEPING ON HOURLY ROUNDS.
[2020-08-24 06:00] LABS: ABSOLUTE NEUTROPHILS 4.8 thou/uL (1.4-8.2); BASOPHILS 0.9 % (0.0-2.0); HEMOGLOBIN 12.8 gm/dL (14.0-18.0); LYMPHOCYTES 27.8 % (24.0-44.0); MCH 29.8 pg (26.0-34.0); MCHC 32.8 g/dL (28.0-37.0); MONOCYTES 7.4 % (1.0-8.0); PLATELET COUNT 318 thou/uL (150-400); POLYS 61.9 % (36.0-66.0); RBC 4.29 mil/uL (4.50-6.00); RDW 13.7 % (10.5-14.5); WBC 7.7 thou/uL (4.0-11.0)
[2020-08-24 06:33] LABS: CALCIUM 8.3 mg/dL (8.5-10.1); CREATININE 1.2 mg/dL (0.7-1.3); MAGNESIUM 1.9 mg/dL (1.8-2.4); POTASSIUM 4.1 mmol/L (3.5-5.1)
[2020-08-24 07:15] VITALS: BP 156/98
--- NOTE | 2020-08-24 09:00 | NUR ---
PT WORKING WITH PT THIS AM. PT WAS BACK IN ROOM SITTING IN CHAIR. PT HAS LEFT LEG AFO TO ASSIST WITH WALKING. PT HAS WEAKNESS TO LEFT SIDE. PT ABLE TO TAKE MEDS WHOLE WITH THIN WATER. PT DENIES ANY PAIN AT THIS TIME.
--- NOTE | 2020-08-24 11:44 | NUR ---
cm visited with alejandro, via phone call, he agrees with dcp. savannah medellin, maria dolores left message with bharti. will cont following as needed for dc needs.
--- NOTE | 2020-08-24 16:30 | NUR ---
MEASURED PT LOWER EXT FOR FABIAN HOSE. PT RT CALF MEASURED 17 INCH AND LEFT CALF 14 IN. TRIMMED TOE NAILS WITHOUT ANY ISSUES AND APPLIED MED. SIZE FABIAN HOSE TO LEFT LE KNEE HIGH. APPLIED XL FABIAN HOSE TO RT LE, PT THANKED THIS COACH WIRER FOR PUTTING FABIAN HOSE ON HIM. APPLIED SOCKS AND SHOES BACK ON HIS FEET.
[2020-08-24 19:45] VITALS: BP 158/99
--- NOTE | 2020-08-25 00:10 | NUR ---
PT ALERT AND ORIENTED X 4. VOIDING PER URINAL. LEFT SIDED WEAKNESS. PT REFUSED COLACE AT HS. PT DENIES PAIN OR DISCOMFORT. BED ALARM ON FOR SAFETY. PT APPEARS TO BE SLEEPING ON HOURLY ROUNDS.
[2020-08-25 08:16] VITALS: BP 132/78
--- NOTE | 2020-08-25 08:17 | NUR ---
dc today home with and family. [facility] ( pt, ot, st, and nursing). dc approx time noon today. no driving. /family to assist with medication and finances.
[2020-08-25 09:00] VITALS: BP 145/96
[2020-08-25] MEDS ORDERED: VITAMIN D3125 MC1 PO (09:19)
[2020-08-25] MEDS ORDERED: ADULT LOW DOSE81 MG PO (09:19)
[2020-08-25] MEDS ORDERED: FOLIC ACID1 MG PO (09:19)
--- NOTE | 2020-08-25 10:01 | NUR ---
ASSUMED CARE AT 0700. PT IS A&OX4. DENIES PAIN. OLD NICOTINE PATCH REMOVED, AND NEW NICOTINE PATCH DATED AND ADMINISTERED. REFUSED COLACE ON AM MED PASS. AM BG WAS 89. PT IS DISCHARGING TODAY. DISCHARGE EDUCATION WILL BE PROVIDED BY RN.
[2020-08-25] MEDS ORDERED: LISINOPRIL10 MG PO (11:46)
[2020-08-25] MEDS ORDERED: CARVEDILOL25 MG PO (11:46)
--- NOTE | 2020-08-26 15:57 | NUR ---
phone call from saying some of medication where not set to his pharmacy and they needing the medications. cm passed on information to bharti and to [facility] nurse manager flight.
--- NOTE | 2020-08-29 12:53 | PLAN ---
[facility] [place] [address] REHAB UNIT PLAN OF CARE Name: ARACELI LARSEN Room #: 515-P DIS IN M.R.#: [id number] Admission: 08/15/20 Attend Phys: Brent Pelayo MD Discharge: 08/25/20 Date of : 57 Report #: [id number] THIS REPORT FOR: cc: Ally Stpales,Ally Craig,Brent Guy MD ~ DATE OF SERVICE: 08/17/2020 PULMONARY CRITICAL CARE CONSULTATION CARE SUBJECTIVE: The patient is seen on the inpatient rehab [facility]. He was in no distress. Temperature 97.9, pulse 62, respirations 20, blood pressure 136/81. He has left-sided hemiparesis and notes that he has significant premorbid hemiparesis. He has the left AFO and therapy is to be in contact with the avp regarding a dandy that apparently needs to be repaired. Plan is for him to undergo MRI scans, both of his head and his cervical spine as per Neurology recommendations. Functionally, he is transferring with min assist. Gait is 100 feet with a front-wheeled walker with a left AFO. In occupational therapy, upper body dressing is mod assist with lower body dressing, min assist. In speech therapy, he is noted to have moderate cognitive deficits, moderate expressive deficits, and severe memory deficits. He is on a mechanical soft diet with thin liquids. ASSESSMENT: 1. Acute cerebrovascular accident, left frontal. 2. 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 3. Hypertension. 4. Hyperlipidemia. 5. Congestive heart failure. 6. Diabetes mellitus type 2. 7. Coronary artery disease, status post stenting. 8. Tobacco abuse. PLAN: The overall plan of care is based on the preadmission screen and information garnered from therapy assessments. 1. Estimated length of stay is probably around 10 days to 14 days. Per team conference, the plan is for discharge next , 08/25/2020. 2. Medical prognosis is reasonably good. 3. Anticipated interventions include the interdisciplinary acute inpatient rehabilitation program. 4. Anticipated functional outcomes would be for the patient to become modified independent with transfers, mobility and ADLs at a walker/AFO level, also with improvement with his cognition. 5. Discharge destination would be back to the home setting where he lives with his and there [place] [address] REHAB UNIT PLAN OF CARE Name: ARACELI LARSEN Room #: 515-P [facility] IN M.R.#: [id number] Admission: 08/15/20 Attend Phys: Brent Pelayo MD Discharge: 08/25/20 Date of : 57 Report #: [id number] 6. Expected therapy by discipline includes PT, OT and speech 1 hour per day each five days a week throughout the duration of the acute inpatient rehabilitation stay. ADDENDUM: The patient's prognosis for significant practical improvement within a reasonable period of time appears good. Given the patient's complex medical condition and risk of further medical complication, rehabilitation services could not be safely provided at the lower senior living facility level of care. <ELECTRONICALLY SIGNED> By: Brent Pelayo MD 08/29/20 1253 [id number] [id number] Brent Pelayo MD /[facility]
== END 2020-08-25 11:20 | disposition home health service (06) | DRG 56 ==
PROVIDERS: Nurse Practitioner; Nurse Practitioner Family; ADMIT Physical Medicine & Rehabilitation; ATTEND Physical Medicine & Rehabilitation
DX: I69.354 Hemiplegia and hemiparesis following cerebral infarction affecting left non-dominant side (principal); I63.9 Cerebral infarction, unspecified; E78.5 Hyperlipidemia, unspecified; I11.0 Hypertensive heart disease with heart failure; I50.9 Heart failure, unspecified; E11.9 Type 2 diabetes mellitus without complications; I25.10 Atherosclerotic heart disease of native coronary artery without angina pectoris; Z95.5 Presence of coronary angioplasty implant and graft; F01.50 Vascular dementia, unspecified severity, without behavioral disturbance, psychotic disturbance, mood disturbance, and anxiety; Z87.442 Personal history of urinary calculi; F17.210 Nicotine dependence, cigarettes, uncomplicated; Z71.6 Tobacco abuse counseling
CPT/HCPCS: 10112

== ENCOUNTER → 2020-10-18 | Outpatient (CLI) | payer OTHER ==
[~2020-10-18] MED LIST changes: +ADULT LOW DOSE81 MG PO; +FOLIC ACID1 MG PO; +VITAMIN D3125 MC1 PO
== END ==
LOC: SJCVC 15:00
PROVIDERS: ATTEND Internal Medicine Cardiovascular Disease
DX: R94.31 Abnormal electrocardiogram [ECG] [EKG] (principal); I11.0 Hypertensive heart disease with heart failure; I50.9 Heart failure, unspecified; I25.110 Atherosclerotic heart disease of native coronary artery with unstable angina pectoris; E78.00 Pure hypercholesterolemia, unspecified; I63.9 Cerebral infarction, unspecified; E11.9 Type 2 diabetes mellitus without complications; E78.5 Hyperlipidemia, unspecified; F17.200 Nicotine dependence, unspecified, uncomplicated; Z79.82 Long term (current) use of aspirin; Z79.899 Other long term (current) drug therapy; Z79.84 Long term (current) use of oral hypoglycemic drugs; Z86.73 Personal history of transient ischemic attack (TIA), and cerebral infarction without residual deficits; Z87.891 Personal history of nicotine dependence; Z72.89 Other problems related to lifestyle

== ENCOUNTER → 2021-03-17 | Outpatient (CLI) | payer OTHER ==
[2021-03-17 11:33] LABS: BASOPHILS 0.6 % (0.0-2.0); EOSINOPHILS 1.8 % (0.0-3.0); HEMATOCRIT 43.6 % (42.0-52.0); LYMPHOCYTES 19.7 % (24.0-44.0); MCH 30.4 pg (26.0-34.0); MCHC 32.2 g/dL (28.0-37.0); MCV 94.4 fL (80.0-100.0); MONOCYTES 5.3 % (1.0-8.0); PLATELET COUNT 298 thou/uL (150-400); POLYS 72.6 % (36.0-66.0); RBC 4.62 mil/uL (4.50-6.00); RDW 12.7 % (10.5-14.5); WBC 8.2 thou/uL (4.0-11.0)
[2021-03-17 11:45] LABS: ALBUMIN 3.4 g/dL (3.4-5.0); CREATININE 1.4 mg/dL (0.7-1.3); POTASSIUM 3.6 mmol/L (3.5-5.1); TOTAL BILIRUBIN 0.5 mg/dL (0.2-1.0); TOTAL PROTEIN 7.5 g/dL (6.4-8.2)
== END | disposition home or self-care (01) ==
LOC: MRI 09:31
PROVIDERS: ATTEND Psychiatry & Neurology Neuromuscular Medicine
DX: I63.9 Cerebral infarction, unspecified (principal); G93.89 Other specified disorders of brain

== ENCOUNTER → 2021-05-09 | Outpatient (CLI) | payer OTHER | LOC: SJCVCIMAG 14:19 | PROVIDERS: ATTEND Internal Medicine Cardiovascular Disease | DX: R94.31 Abnormal electrocardiogram [ECG] [EKG] (principal); I08.0 Rheumatic disorders of both mitral and aortic valves; I25.10 Atherosclerotic heart disease of native coronary artery without angina pectoris; E78.00 Pure hypercholesterolemia, unspecified; R60.9 Edema, unspecified; I11.0 Hypertensive heart disease with heart failure; I50.9 Heart failure, unspecified; E11.9 Type 2 diabetes mellitus without complications; E78.5 Hyperlipidemia, unspecified; N28.1 Cyst of kidney, acquired; Z86.73 Personal history of transient ischemic attack (TIA), and cerebral infarction without residual deficits; Z87.891 Personal history of nicotine dependence; Z72.89 Other problems related to lifestyle; Z79.82 Long term (current) use of aspirin; Z79.84 Long term (current) use of oral hypoglycemic drugs; Z79.899 Other long term (current) drug therapy ==

== ENCOUNTER 2021-06-03 10:50 | Emergency (ER) | payer OTHER ==
[~2021-06-03] VITALS: Ht 185.4 cm; Wt 103.0 kg
--- NOTE | ~2021-06-03 | EMS ---
[address] [address] EMS Patient Care Report Name: ARACELI LARSEN Room #: DEP MARY Luz#: [id number] Admission: 06/03/21 Attend Phys: Discharge: 06/03/21 Date of : 57 Report #: [id number] THIS REPORT FOR: //name// Report Transmitted: 06/06/2021 12:09 EMS Care Summary [place], [place] Incident [id number] @ 06/03/2021 10:16 Incident Location [address] [place] [address] Patient ARACELI LARSEN Male, 65 Years 1955 Patient Address [address] [place] [address] Patient History Stroke/CVA, Patient Allergies No known allergies, Patient Medications ASA, Plavix, Chief Complaint WEAK Disposition Transported No Lights/[place] Dispatch Reason Stroke/CVA Transported To [facility] Narrative RESPONDED TO STROKE AT HOME. UPON ARRIVAL PT WAS ASSISTED TO COT WITH WALKER. PT IS UNSTEADY ON FEET. FAMILY REPORTS WEAKNESS BEGAN ABOUT 3AM. PT NORMALLY CAN WALK WITH WALKER BUT NO LONGER CAN. PT VITALS AND 3 LEAD OBTAINED. PT TRANSPORTED TO [facility] WITH NO CHANGES. PT TEAM LIFTED TO BED AND HANDRAILS [address] [address] EMS Patient Care Report Name: ARACELI LARSEN Room #: DEP ER Natty#: [id number] Admission: 06/03/21 Attend Phys: Discharge: 06/03/21 Date of : 57 Report #: [id number] UP. REPORT GIVEN TO NURSE. Initial Vitals @10:30P: 112, @10:30P: 111,R: 18,BP: 169/94,Pain: 0/10,GCS: 15,Glucose: 184,SpO2: 94,Revised Trauma: 12, @10:39P: 111,R: 18,BP: 150/90,GCS: 15,SpO2: 94,Revised Trauma: 12, Assessments @10:27MENTAL:Person Oriented,Time Oriented,Event Oriented,Place Oriented,SKIN:HEENT:Neck/Airway: No Abnormalities,LUNG SOUNDS:General: No Abnormalities,Left Upper: No Abnormalities,Right Upper: No Abnormalities,Left Lower: No Abnormalities,Right Lower: No Abnormalities,ABDOMEN:General: No Abnormalities,Left Upper: No Abnormalities,Right Upper: No Abnormalities,Left Lower: No Abnormalities,Right Lower: No Abnormalities,PELVIS//GI:No Abnormalities,EXTREMITIES:Right Leg: Weakness,Left Arm: Weakness,Right Arm: Weakness,Left Leg: Weakness,PULSE:Radial: 2+ Normal,NEURO:Weakness Left-Sided, Impression Generalized Weakness Procedures @10:27 ALS Assessment Response: UnchangedSucceeded @10:29 IV Therapy - Saline Lock 0cc (20 ga) Site: Antecubital-Right Response: UnchangedFailed @10:33 3-Lead ECG Response: UnchangedSucceeded Timeline 10:15,Call Received 10:15,Dispatch Notified 10:16,Dispatched 10:17,En Route 10:25,On Scene 10:27,At Patient 10:27,ALS Assessment,Response: UnchangedSucceeded, 10:29,IV Therapy - Saline Lock 0cc 20 ga Site: Antecubital-Right,Response: UnchangedFailed, 10:30,BP: 169/94 M,PULSE: 111,RR: 18 R,SPO2: 94 Ox,ETCO2: ,B,PAIN: 0,GCS: 15, 10:30,BP: / M,PULSE: 112,RR: R,SPO2: Ox,ETCO2: ,BG: ,PAIN: ,GCS: , 10:33,3-Lead ECG,Response: UnchangedSucceeded, 10:39,Depart Scene 10:39,BP: 150/90 M,PULSE: 111,RR: 18 R,SPO2: 94 Ox,ETCO2: ,BG: ,PAIN: ,GCS: 15, 10:47,At Destination 11:11,Call Closed [facility] [address] [place] [address] EMS Patient Care Report Name: ARACELI LARSEN Room #: DEP Natty#: [id number] Admission: 06/03/21 Attend Phys: Discharge: 06/03/21 Date of : 57 Report #: [id number] Disclaimer [email or web address] Copyright 2021 [employer] This EMS Care Summary contains data elements from the applicable legal record (which may be displayed differently). It is designed to provide pertinent information for the following purposes: continuity of care, clinical quality, and state data reporting. The complete legal record is available to ED staff and administrators of the receiving hospital in [facility]'s Patient Tracker. All data is provided "as is."
--- NOTE | ~2021-06-03 | EMS ---
[address] [address] EMS Patient Care Report Name: ARACELI LARSEN Room #: DEP MARY Luz#: [id number] Admission: 06/03/21 Attend Phys: Discharge: 06/03/21 Date of : 57 Report #: [id number] THIS REPORT FOR: //name// Report Transmitted: 06/05/2021 09:55 EMS Care Summary [place], [place] Incident [phone] @ 06/03/2021 10:16 Incident Location [address] [place] [address] Patient ARACELI LARSEN Male, 65 Years 1955 Patient Address [address] [place] [address] Patient History Stroke/CVA, Patient Allergies No known allergies, Patient Medications ASA, Plavix, Chief Complaint WEAK Disposition Transported No Lights/[place] Dispatch Reason Stroke/CVA Transported To [facility] Narrative RESPONDED TO STROKE AT HOME. UPON ARRIVAL PT WAS ASSISTED TO COT WITH WALKER. PT IS UNSTEADY ON FEET. FAMILY REPORTS WEAKNESS BEGAN ABOUT 3AM. PT NORMALLY CAN WALK WITH WALKER BUT NO LONGER CAN. PT VITALS AND 3 LEAD OBTAINED. PT TRANSPORTED TO [facility] WITH NO CHANGES. PT TEAM LIFTED TO BED AND HANDRAILS [address] [address] EMS Patient Care Report Name: ARACELI LARSEN Room #: DEP ER Natty#: [id number] Admission: 06/03/21 Attend Phys: Discharge: 06/03/21 Date of : 57 Report #: [id number] UP. REPORT GIVEN TO NURSE. Initial Vitals @10:30P: 112, @10:30P: 111,R: 18,BP: 169/94,Pain: 0/10,GCS: 15,Glucose: 184,SpO2: 94,Revised Trauma: 12, @10:39P: 111,R: 18,BP: 150/90,GCS: 15,SpO2: 94,Revised Trauma: 12, Assessments @10:27MENTAL:Person Oriented,Time Oriented,Event Oriented,Place Oriented,SKIN:HEENT:Neck/Airway: No Abnormalities,LUNG SOUNDS:General: No Abnormalities,Left Upper: No Abnormalities,Right Upper: No Abnormalities,Left Lower: No Abnormalities,Right Lower: No Abnormalities,ABDOMEN:General: No Abnormalities,Left Upper: No Abnormalities,Right Upper: No Abnormalities,Left Lower: No Abnormalities,Right Lower: No Abnormalities,PELVIS//GI:No Abnormalities,EXTREMITIES:Right Leg: Weakness,Left Arm: Weakness,Right Arm: Weakness,Left Leg: Weakness,PULSE:Radial: 2+ Normal,NEURO:Weakness Left-Sided, Impression Generalized Weakness Procedures @10:27 ALS Assessment Response: UnchangedSucceeded @10:29 IV Therapy - Saline Lock 0cc (20 ga) Site: Antecubital-Right Response: UnchangedFailed @10:33 3-Lead ECG Response: UnchangedSucceeded Timeline 10:15,Call Received 10:15,Dispatch Notified 10:16,Dispatched 10:17,En Route 10:25,On Scene 10:27,At Patient 10:27,ALS Assessment,Response: UnchangedSucceeded, 10:29,IV Therapy - Saline Lock 0cc 20 ga Site: Antecubital-Right,Response: UnchangedFailed, 10:30,BP: 169/94 M,PULSE: 111,RR: 18 R,SPO2: 94 Ox,ETCO2: ,B,PAIN: 0,GCS: 15, 10:30,BP: / M,PULSE: 112,RR: R,SPO2: Ox,ETCO2: ,BG: ,PAIN: ,GCS: , 10:33,3-Lead ECG,Response: UnchangedSucceeded, 10:39,Depart Scene 10:39,BP: 150/90 M,PULSE: 111,RR: 18 R,SPO2: 94 Ox,ETCO2: ,BG: ,PAIN: ,GCS: 15, 10:47,At Destination 11:11,Call Closed [facility] [address] [place] [address] EMS Patient Care Report Name: ARACELI LARSEN Room #: DEP Natty#: [id number] Admission: 06/03/21 Attend Phys: Discharge: 06/03/21 Date of : 57 Report #: [id number] Disclaimer v1.1 Copyright 2021 [employer] This EMS Care Summary contains data elements from the applicable legal record (which may be displayed differently). It is designed to provide pertinent information for the following purposes: continuity of care, clinical quality, and state data reporting. The complete legal record is available to ED staff and administrators of the receiving hospital in [facility]'s Patient Tracker. All data is provided "as is."
[2021-06-03 12:39] LABS: URINE BILIRUBIN NEGATIVE (Negative); URINE BLOOD 1+ (Negative); URINE CLARITY CLEAR; URINE COLOR YELLOW; URINE GLUCOSE-RANDOM* 3+ (Negative); URINE KETONES NEGATIVE (Negative); URINE LEUKOCYTES-REFLEX NEGATIVE (Negative); URINE NITRITE-REFLEX NEGATIVE (Negative); URINE PROTEIN (DIPSTICK) 1+ (Negative); URINE UROBILINOGEN 0.2 E.U./dl (0.2-1.0)
[2021-06-03 12:49] LABS: ABSOLUTE NEUTROPHILS 7.3 thou/uL (1.4-8.2); BASOPHILS 0.9 % (0.0-2.0); EOSINOPHILS 0.5 % (0.0-3.0); HEMATOCRIT 40.1 % (42.0-52.0); HEMOGLOBIN 13.2 gm/dL (14.0-18.0); LYMPHOCYTES 6.3 % (24.0-44.0); MCH 31.1 pg (26.0-34.0); MCHC 32.9 g/dL (28.0-37.0); MCV 94.6 fL (80.0-100.0); MONOCYTES 7.4 % (1.0-8.0); PLATELET COUNT 229 thou/uL (150-400); POLYS 84.9 % (36.0-66.0); RBC 4.24 mil/uL (4.50-6.00); RDW 12.8 % (10.5-14.5); WBC 8.6 thou/uL (4.0-11.0)
[2021-06-03 12:51] LABS: CREATININE 1.5 mg/dL (0.7-1.3); POTASSIUM 3.7 mmol/L (3.5-5.1)
[2021-06-03 13:01] LABS: ALBUMIN 3.4 g/dL (3.4-5.0); TOTAL BILIRUBIN 1.1 mg/dL (0.2-1.0); TOTAL PROTEIN 6.8 g/dL (6.4-8.2)
[2021-06-03 13:59] LABS: CRYSTALS None Seen /LPF (None Seen); FINE GRANULAR CASTS 0-3 Few /LPF (None Seen); SQUAMOUS 0-3 Few /LPF (0-3); URINE RBC 1-2 Rare /HPF (NONE SEEN); URINE WBC-REFLEX 0-5 Rare /HPF (0-5)
[2021-06-03 14:00] LABS: BACTERIA-REFLEX 1-9 Few /HPF (None Seen); YEAST-REFLEX Present (None Seen)
[2021-06-03 15:57] VITALS: BP 165/80
[2021-06-03] MEDS ORDERED: TESSALON PERLE100 MG PO (16:20)
--- NOTE | 2021-06-04 11:19 | EKG ---
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 : 1955 Requested By: Serina Stokes Order Number: [id number] MD: Jose Naik Measurements Intervals [place] Rate: 96 P: 40 MS: 171 QRS: -6 QRSD: 109 T: 182 QT: 348 QTc: 440 Interpretive Statements Sinus rhythm Inferior wall IA Nonspecific T wave abnormalities Compared to ECG 08/13/2020 19:15:12 T-wave abnormality now present Myocardial infarct finding still present Electronically Signed On 06-04-2021 11:19:25 [employer] MACHINE TENDER by Jose Naik [email or web address] <ELECTRONICALLY SIGNED> By: Jose Naik MD 06/04/21 [id number] MD JAIME Steele
== END 2021-06-03 16:49 | disposition home or self-care (01) ==
LOC: ER 10:50
PROVIDERS: Emergency Medicine
DX: U07.1 COVID-19 (principal); R53.1 Weakness; I11.0 Hypertensive heart disease with heart failure; I50.9 Heart failure, unspecified; E78.5 Hyperlipidemia, unspecified; E11.9 Type 2 diabetes mellitus without complications; F17.210 Nicotine dependence, cigarettes, uncomplicated; Z79.899 Other long term (current) drug therapy

== ENCOUNTER → 2021-06-27 | Outpatient (CLI) | payer OTHER | LOC: SJCVC 13:39 | PROVIDERS: ATTEND Internal Medicine Cardiovascular Disease | DX: R60.9 Edema, unspecified (principal); I11.0 Hypertensive heart disease with heart failure; I50.9 Heart failure, unspecified; E11.9 Type 2 diabetes mellitus without complications; E78.5 Hyperlipidemia, unspecified; Z87.891 Personal history of nicotine dependence; Z72.89 Other problems related to lifestyle; Z79.82 Long term (current) use of aspirin; Z79.84 Long term (current) use of oral hypoglycemic drugs; Z79.899 Other long term (current) drug therapy ==